=== PATIENT | female | born 1995 | race Caucasian/White ===

== ENCOUNTER → 2019-02-01 | Outpatient (CLI) | payer OTHER, SELFPAY ==
[2019-02-01 08:19] VITALS: BMI 23.6
[2019-02-01 18:59] LABS: Chlamydia Trachomatis by PCR Negative (Negative); Neisserai gonorrhoeae by PCR Negative (Negative); Probe Check PASS; Sample Adequacy Control PASS; Specimen Processing Control PASS
[2019-02-07 15:54] LABS: HPV Reflexed? NOT INDICATED
== END | disposition home or self-care (01) ==
LOC: LABSPEC 12:56
PROVIDERS: Nurse Practitioner Women's Health; Family Provider Pediatrics; PCP Pediatrics; Referring Provider Obstetrics & Gynecology; Visit Provider Obstetrics & Gynecology
DX: N89.8 Other specified noninflammatory disorders of vagina (principal); Z11.3 Encounter for screening for infections with a predominantly sexual mode of transmission; Z12.4 Encounter for screening for malignant neoplasm of cervix
CPT/HCPCS: 87070; 87205; 87491; 87591; 87624; 88175; G0145

== ENCOUNTER → 2019-02-03 | Outpatient (CLI) | payer OTHER, SELFPAY ==
[2019-02-03 08:36] VITALS: BMI 23.4
[2019-02-03 12:25] LABS: Hematocrit 41.1 % (37-47); Hemoglobin 13.7 g/dL (12.0-15.0); Mean Corp Hgb Conc 33.3 g/dL (32-36); Mean Platelet Vol. 10.5 fl (6.2-12.0); Platelet Count 228 K/mm3 (150-450); RBC Distribution Width CV 11.6 % (11.6-14.6); RBC Distribution Width SD 39.6 fl (35.1-43.9); Red Blood Count 4.42 M/mm3 (4.2-5.4); White Blood Count 3.8 K/mm3 (4.4-11.0)
[2019-02-03 12:47] LABS: AST(SGOT) 19 U/L (15-37); Alanine Aminotransfer ALT/SGPT 21 U/L (13-56); Albumin, Serum 3.5 g/dL (3.2-5.0); Alkaline Phosphatase 64 U/L (45-117); Anion Gap 3 (5-15); BUN 12 mg/dL (7-18); BUN/Creat Ratio 14.3 RATIO (10-20); Calcium,Total 8.6 mg/dL (8.5-10.1); Chloride 108 mmol/L (98-107); Creatinine, Serum 0.84 mg/dL (0.55-1.02); EST Glomerular Filtration Rate 90 mL/min (>60); Est Glom Filt Rate - Afr Amer 108 mL/min (>60); Globulin 3.4 g/dL (2.2-4.2); Glucose 86 mg/dL (74-106); Potassium 4.3 mmol/L (3.5-5.1); Protein, Total 6.9 g/dL (6.4-8.2); Sodium Level 138 mmol/L (136-145); Thyroid Stim Hormone (TSH) 0.83 uIU/mL (0.358-3.74)
== END | disposition home or self-care (01) ==
LOC: BIMLAB 09:00
PROVIDERS: Family Provider Pediatrics; PCP Internal Medicine; Visit Provider Nurse Practitioner Family
DX: R42 Dizziness and giddiness (principal)
CPT/HCPCS: 36415; 80053; 84443; 85027

== ENCOUNTER → 2019-06-07 12:27 | Outpatient (CLI) | payer OTHER, SELFPAY ==
[2019-04-07 14:14] VITALS: BMI 23.6
[2019-06-01 09:24] VITALS: BMI 23.6
--- NOTE | 2019-06-07 12:46 | MRI_ITS ---
STUDY: MRI BRAIN WITH AND WITHOUT CONTRAST REASON FOR EXAM: Female, 23 years old. Migraine headache, dizziness TECHNIQUE: Standardized multiplanar fat and water weighted pulse sequences were obtained. Dotarem 10ml IV was administered for the contrast portion of the examination. COMPARISON: None. FINDINGS: Normal size of the ventricles and extra-axial spaces for the patient''s age. Scattered punctate hyperintensities in the periventricular and subcortical white matter. Differential diagnosis includes hypercoagulable state including antiphospholipid antibody syndrome, vasculitis, migraine headaches, demyelinating disease (multiple sclerosis) stenosis, or Lyme disease. No contrast enhancement. There is no evidence for recent intracranial ischemia or other cause of cytotoxic edema on diffusion weighted imaging (DWI). Normal bilateral basal ganglia. Normal thalami. There is no extra-axial fluid accumulation. Normal flow voids within the major intracranial circulation suggesting patency by spin echo criteria. Normal venous enhancement. There is no enhancing intra-axial or extra-axial abnormality. Normal sella turcica, pituitary gland, infundibular stalk, optic chiasm and hypothalamus. Normal tectal plate and pineal gland. Normal midbrain, alfonso and medulla. Normal cerebellum. Normal basal cisterns. Normal bilateral temporal bones. Normal bilateral internal auditory canals. No demonstrated orbital abnormality, within the constraints of a routine brain study. Normal visualized paranasal sinuses. Normal calvarium and skull base. Normal visualized soft tissue structures. Normal visualized upper cervical spine. MRI/Brain W/WO Contrast IMPRESSION: Scattered punctate of the periventricular and subcortical white matter of of the frontal lobes and posterior parietal lobes. Differential diagnosis includes hypercoagulable state including antiphospholipid antibody syndrome, vasculitis, migraine headaches, demyelinating disease (multiple sclerosis) versus, or Lyme disease. No acute infarct or contrast enhancement. Electronically Signed: Sixto Moreau MD at 16:35 EST Tel , Service support ,
[2019-06-07 13:41] LABS: CREATININE FINGERSTICK 0.8 mg/dL (0.55-1.02); EGFR FINGERSTICK > 60.0000 mL/min (>60)
== END ==
PROVIDERS: Family Provider Internal Medicine; PCP Internal Medicine; Referring Provider Otolaryngology; Visit Provider Otolaryngology
DX: G43.009 Migraine without aura, not intractable, without status migrainosus (principal)
CPT/HCPCS: 70553; A9575

== ENCOUNTER → 2019-08-24 07:34 | Outpatient (CLI) | payer OTHER, SELFPAY ==
[2019-06-01 09:24] VITALS: BMI 23.6
--- NOTE | 2019-08-24 07:42 | MRI_ITS ---
STUDY: MRA OF THE HEAD WITHOUT CONTRAST REASON FOR EXAM: Female, 23 years old. h/a; exclude vasculitis, f/u mri COMPARISON: Previous MRI of the brain obtained on 06/07/2019 TECHNIQUE: An MRI of the head was performed utilizing 3-D [id number] spoiled gradient echo images. The source images were reviewed along with MIPPED images rotated about a vertical and horizontal axis through the anterior and posterior cerebral circulations. FINDINGS: Posterior cerebral circulation: The V4 segments of the vertebral arteries are normal. The basilar artery is normal. The anterior inferior cerebellar artery is seen and appears to be normal. The anterior superior cerebellar arteries are seen at their origins bilaterally. The P1 and P2 segments of posterior cerebral arteries are visualized and appear to be normal. Anterior cerebral circulation: The petrous, cavernous, and supraclinoid portions of the internal carotid arteries appear to be normal. The A1 segments of the anterior cerebral arteries and the pericallosal arteries appear to be normal. The anterior communicating artery is normal. The M1 segments of the middle cerebral arteries appear to be normal. The bifurcations of the middle cerebral arteries appear to be normal. No abnormal areas of spasm or peripheral dilatation of peripheral arteries is seen. No corbett aneurysms are identified. MRI/MRA Head ONLY without Contrast IMPRESSION: Normal MRA of the head Electronically Signed: Gurmeet More, at 11:25 EST Tel , Service support ,
== END ==
PROVIDERS: PCP Internal Medicine
DX: I77.6 Arteritis, unspecified (principal)
CPT/HCPCS: 70544

== ENCOUNTER → 2019-12-28 14:16 | Outpatient (CLI) | payer OTHER, SELFPAY ==
[2019-12-28 13:47] VITALS: BMI 22.1
[2019-12-28 15:13] LABS: Absolute Lymphocyte Count 2.02 X10^3/uL (0.83-4.51); Absolute Neutrophil Count 3.1 X10^3/uL (2.0-7.7); Basophil# 0.04 X10^3/uL; Basophil% 0.7 % (0-1); Eosinophil# 0.04 X10^3/uL; Eosinophils% 0.7 % (0-5); Hematocrit 38.7 % (37-47); Hemoglobin 13.2 g/dL (12.0-15.0); Lymphocyte # 2.02 X10^3/ul (4.0); Lymphocyte % 37.1 % (19-41); Mean Corp Hgb Conc 34.1 g/dL (32-36); Mean Corpuscular Volume 93.7 fL (81-99); Mean Platelet Vol. 10.1 fl (6.2-12.0); Monocyte# 0.29 X10^3/uL; Monocyte% 5.3 % (0-10); NRBC Flagged by Analyzer 0 % (0-5); Neutrophil # 3.05 X10^3/uL (2.7-7.7); Neutrophil % 56.2 % (47-70); Platelet Count 242 K/mm3 (150-450); RBC Distribution Width CV 11.9 % (11.6-14.6); RBC Distribution Width SD 40.8 fl (35.1-43.9); Red Blood Count 4.13 M/mm3 (4.2-5.4); White Blood Count 5.4 K/mm3 (4.4-11.0)
[2019-12-28 16:51] LABS: Anion Gap 7 (5-15); BUN 19 mg/dL (7-18); BUN/Creat Ratio 24.1 RATIO (10-20); Calcium,Total 8.7 mg/dL (8.5-10.1); Chloride 105 mmol/L (98-107); Creatinine, Serum 0.79 mg/dL (0.55-1.02); EST Glomerular Filtration Rate 96 mL/min (>60); Est Glom Filt Rate - Afr Amer 116 mL/min (>60); Glucose 72 mg/dL (74-106); Potassium 3.9 mmol/L (3.5-5.1); Sodium Level 140 mmol/L (136-145); Thyroid Stim Hormone (TSH) 1.08 uIU/mL (0.358-3.74)
== END ==
PROVIDERS: PCP Internal Medicine; Referring Provider Internal Medicine; Visit Provider Internal Medicine
DX: F41.1 Generalized anxiety disorder (principal)
CPT/HCPCS: 36415; 80048; 84443; 85025

== ENCOUNTER → 2020-01-03 09:09 | Outpatient (CLI) | payer OTHER, SELFPAY ==
[2020-01-02 16:51] VITALS: BMI 22.1
[2020-01-03 09:16] LABS: Bacteria 0 SEEN /hpf (None Seen); Mucous, Urine 0 SEEN /hpf (<or=2+); Red Blood Cells-Urine 0 SEEN /hpf (0-5); White Blood Cells 0 SEEN /hpf (0-5)
[2020-01-03 09:41] LABS: Color, Urine Yellow (Yellow); Glucose, Dipstick Normal (Normal); Ketone-Dipstick Negative (Negative); Leukocyte Esterase-Dipstick Negative /ul (Negative); Nitrite-Dipstick Negative (Negative); Occult Blood-Urine Negative /ul (Negative); Protein-Dipstick Negative (Negative); Urine Bilirubin Dipstick Negative (Negative); Urine Clarity Sl. Cloudy (Clear); Urine Urobilinogen Normal (Normal)
[2020-01-03 09:53] LABS: Squamous Epithelial Cells - UA 5-10 SEEN /hpf (5-10)
== END ==
PROVIDERS: Family Medicine; PCP Internal Medicine; Referring Provider Internal Medicine; Visit Provider Internal Medicine
DX: Z20.828 Contact with and (suspected) exposure to other viral communicable diseases (principal); M54.9 Dorsalgia, unspecified; R30.0 Dysuria
CPT/HCPCS: 81001; 87635; G2023; U0003

== ENCOUNTER → 2020-01-18 08:38 | Outpatient (CLI) | payer OTHER, SELFPAY ==
[2020-01-02 16:51] VITALS: BMI 22.1
[2020-01-18 10:05] LABS: CRP < 2.90 mg/L (0.0-3.0)
[2020-01-23 19:50] LABS: Calprotectin, Stool 50 ug/g (0-120)
== END ==
PROVIDERS: PCP Internal Medicine; Referring Provider Internal Medicine Gastroenterology; Visit Provider Internal Medicine Gastroenterology
DX: R19.4 Change in bowel habit (principal); R10.84 Generalized abdominal pain
CPT/HCPCS: 36415; 83993; 86140

== ENCOUNTER → 2020-01-22 16:10 | Outpatient (CLI) | payer OTHER, SELFPAY ==
[2020-01-22 15:12] VITALS: BMI 22.1
[2020-01-22 17:49] LABS: AST(SGOT) 18 U/L (15-37); Alanine Aminotransfer ALT/SGPT 23 U/L (13-56); Albumin, Serum 3.9 g/dL (3.2-5.0); Alkaline Phosphatase 63 U/L (45-117); Amylase 83 U/L (25-115); Bilirubin, Direct 0.15 mg/dL (0.00-0.30); Globulin 3.4 g/dL (2.2-4.2); Lipase 219 U/L (73-393); Protein, Total 7.3 g/dL (6.4-8.2)
== END ==
PROVIDERS: PCP Internal Medicine; Referring Provider Surgery; Visit Provider Surgery
DX: R10.9 Unspecified abdominal pain (principal)
CPT/HCPCS: 36415; 80076; 82150; 83690

== ENCOUNTER 2020-01-30 13:54 | Day surgery (SDC) | payer OTHER, SELFPAY ==
[2020-01-22 15:12] VITALS: BMI 22.1
[2020-01-30] VITALS (11 sets, daily range): BP systolic 93–118; BP diastolic 51–75; PULSE 55–64; RESP 14–16; TEMP 36.3–37.5; O2SAT 95–100; BMI 22.3
--- NOTE | 2020-01-30 | GALL_PTH ---
PATIENT: HATTIE FORD LOC: [facility] [place] U#:[id number] AGE/SX: 24/ ROOM: RE01/30/[address]: Dr. Je Guillen MD : 1995 BED: DIS: 01/30/2020 SPEC #: [id number] RECD: 01/31/20 07:31 STATUS: SCOUT MARY #: [id number] CRISTIAN: 01/30/20 00:[address]: Je Guillen DEPT: SURGICAL PATHOLOGY RECD BY: Wolf Hwang ENTERED: 01/31/20 09:06 SP TYPE: KIM SANCHEZ DR: Dr. Andriena Hernandez MD Tissues: Gallbladder, NOS Procedures: Surgery Specimen Level III HEADER OPERATION: Laparoscopic cholecystectomy with IOC PRE-OP DIAGNOSIS: Biliary dyskinesia TISSUE SUBMITTED: Gallbladder MICROSCOPIC DIAGNOSIS Gallbladder, cholecystectomy: Mild chronic cholecystitis. A pericystic lymph node with reactive changes. No stones are identified in the container or in the gallbladder. SJ:jennifer 02/01/20 MICROSCOPIC DESCRIPTION Slides are reviewed. GROSS DESCRIPTION Received is one container labeled with the patient's name and designated gallbladder. The specimen consists of a gallbladder measuring 7.5 x 2.5 x 2.5 cm. The external surface is smooth and glistening. Focally, it is granular, hemorrhagic and contains cautery artifact. The lumen of the gallbladder contains yellow-green mucoid bile. No stones are identified in the container or in the gallbladder. The mucosa is bile-stained and without any mass lesions. The gallbladder wall averages 0.1 cm in thickness and is free of mass lesions. Social Worker Assistant sections of the gallbladder and the cystic duct at margin of resection are submitted in one cassette. / AM:jennifer 01/31/20 TC:3 CPT: 29885
--- NOTE | 2020-01-30 14:11 | HP.PCM_ITS ---
Problem List (1) Biliary dyskinesia Status: Acute (2) Abdominal pain Status: Acute Qualifiers: Abdominal location: epigastric Qualified Code(s): R10.13 - Epigastric pain History and Physical Date of Admission: 01/30/20 Intake Visit Reasons: abd pain, change in bowels Chief Complaint: abdominal pain/change in bowel patterns Psychiatric Lpn Required: No Accompanied by: Mother Is patient in pain?: Yes Allergies pumpkin Allergy (Intermediate, Verified 01/22/20 15:11) Swelling Medications levonorgestrel 14 mcg/24 hrs (3 yrs) 13.5 mg intrauterine device 1 device INTRAUTERINE ONCE 06/01/19 [History Confirmed 01/22/20] buspirone 5 mg tablet 7.5 mg PO BID #180 tab 12/28/19 [Rx Confirmed 01/22/20] PFSH Medical History Generalized anxiety disorder (Chronic) URI, acute (Acute) Abdominal pain (Acute) Constipation (Acute) Diarrhea (Acute) Nausea & vomiting (Acute) Migraines (Acute) Surgical History No history of previous surgery (Acute) Family History (Updated 01/22/20 @ 15:10 by Cinthia Royal) Mother Heart disease Hypotension Lupus Father Skin cancer Aunt Migraine Social History (Updated 01/22/20 @ 16:[address] Je Guillen MD) Smoking Status: Never smoker alcohol intake: current alcohol intake frequency: a few times a month details: social substance use type: does not use caffeine: No what type of physical activity do you participate in: other details: Cross Fit frequency: 1-2 times per week seatbelt use: always do you feel safe at home: Yes additional social history: Single- [employer] HPI HPI HPI: HATTIE CHÁVEZ, is a 24 F who presents to the office today for surgical consultation regarding abdominal pain. Primary care physician is Dr. Hernandez and a written copy of my surgical consult recommendations will be returned to her 24-year-old female. I helped interact with her July 2016. That time she had diffuse abdominal pain bloating right lower quadrant pain. A CT scan was obtained at the [facility] showing a small umbilical hernia and gallbladder wall thickening and fluid. Additional possible small bowel ileus. A gallbladder ultrasound was obtained showing a 3 mm diameter wall with some slight fluid. That testing was performed July 31, 2016. On September 14, 2016 a hepatobiliary scan was obtained showing ejection fraction of 77%. We elected not to proceed with surgical intervention. For 3 years the patient has had severely restricted gluten in her diet with 1 year being completely gluten-free. More recently she has stopped dairy in her diet. She felt that it was causing progressive constipation. She now has problems with constipation alternating with diarrhea and this can be throughout a daily process. 3 weeks ago for 1 day she had a temperature of 99.9. COVID testing was performed and by report was negative. For approximately the past 4 months she has had a right flank pain that is radiated down toward the right lower quadrant. More recently over the past the past 3 weeks she has had a sharp pain in her back radiating around subcostally. She complains significantly of bloating and gas pain. She had a recent CRP level done on January 18, 2020 which was less than 2.9. As of January 03, 2020 urinalysis was obtained and this was normal. At that time December 28, 2019 white blood cell count was 5.4 with a hemoglobin of 13.2 and hematocrit 38.7 and platelet count of 242,000. BUN was 19 and creatinine 0.79. TSH was 1.08. Liver function tests were not obtained. She has been seen by gastroenterology in [facility] Dr. Bacon. Stool analysis is pending. The patient is scheduled for a colonoscopy in 3 days on January 25, 2020. It is of additional note that her mother because of abdominal pain is required at previous cholecystectomy and more recently within the past month a younger sister because of postprandial epigastric pain is undergone a laparoscopic cholecystectomy with relief of symptoms on both accounts. HPI HPI HPI: HATTIE CHÁVEZ, is a 24 F who presents to the office today for ROS General General: No weight change, appetite, fatigue, colon cancer, breast cancer or weakness HEENT HEENT: No difficulty swallowing, eye injury, eye surgery, swollen glands or hoarseness Endo Endocrine: No thyroid disease, diabetes mellitus, thyroid cancer, Hair loss, heat intolerance or cold intolerance Skin Skin: No rash or changing moles Breast Breast: No left breast lump, right breast lump, nipple discharge, breast pain, abnormal mammogram, abnormal US or breast enlargement Musc Musculoskeletal: No back problems, arthritis, rheumatoid arthritis, gout or joint pain Cardio Cardiovascular: No murmur, pacemaker, heart disease, atrial fibrillation, high blood pressure, heart attack, heart stent, palpitations, shortness of breat with exertion or chest pain Psych Psychiatric: Yes anxiety; no depression or hearing voices Resp Respiratory: No shortness of breath, No sleep apnea, No cough, No COPD, No asthma, No emphysema, No wheezing Gastro Gastrointestinal: Yes abdominal pain, Yes nausea or vomiting, Yes diarrhea, Yes constipation, No blood in stool, No acid reflux, No hemorrhoids, No ulcers, No gallbladder problem, No black,tarry stools Boni Hematologic: No blood thinners, No blood disorders, No bleeding, No anemia, No blood clots Neuro Neurologic: No system reviewed and no additional complaints, except as docu, No as per HPI, No abnormal walking, No abnormal hearing, No abnormal movements, No abnormal speech, No behavioral changes, No burning sensations, No confusion, No seizure-like activity, No unsteadiness, No dizziness, No localized weakness, No frequent falls, No headache(s), No lack of coordination, No loss of vision, No memory loss, No numbness, No other visual disturbances, No radiating pain, No restless legs, No sensory deficit, No fainting, No tingling, No tremor(s), No weakness, No other Exam Const General: cooperative, healthy appearing, comfortable, no acute distress Nutritional Appearance: average body habitus Orientation: alert, awake [facility] Head: normal to inspection Mouth: oral mucosae normal Eyes General: appearance normal, both eyes and all related structures Chest Breast Palpation: No nipple discharge Resp Effort & Inspection: normal respiratory effort Auscultation: clear to auscultation bilaterally Cardio Rate: regular rate Rhythm: regular rhythm Heart Sounds: no murmurs GI Palpation: soft, no hepatosplenomegaly Auscultation: normal bowel sounds Other: Mild tenderness palpation right upper quadrant, no mass, no rebound, Skin General: no rashes or lesions noted Neuro Cognition: normal cognition Extrem General: no calf tenderness Psych Affect: normal affect Assessment & Plan Problems 1. Biliary dyskinesia K82.8 Plan Clinical presentation findings are highly suspicious for biliary dyskinesia. She previously had borderline abnormal gallbladder evaluation with gallbladder wall thickening and pericholecystic fluid. She is tender in the right upper quadrant of the abdomen. I would like to obtain liver function tests amylase lipase. The squeezing chest pressure from behind radiating from her back forward as if someone is squeezing her from behind is of note. She does do CrossFit and on a separate note there may have some been some musculoskeletal strain but she clearly disassociates this from her more severe pain that she gets postprandially. I recommend LFTs amylase lipase. She is to have a colonoscopy in 3 days. I will coordinate with her tire classifier possible treatment. At this point I am leaning toward recommending a laparoscopic cholecystectomy with selective cholangiography. The patient presents with her mother today. She is aware of the technique, benefit, risk and alternatives. No guarantees of success have been offered. We will schedule and proceed at her discretion CC: Dr. David Guillen M.D., F.A.C.S. Orders Orders: Amylase Today R10.9 Lipase Today R10.9 Liver Profile Today R10.9 Coding Level of Care Code Off vis,est,level 3 Diagnoses Biliary dyskinesia K82.8 After discussion with radiology the patient did have a colonoscopy. Biopsy results were pending at the time of my dictation. The patient awoke this morning with severe epigastric pain. I had had a discussion with the tire classifier his initial impression was probable irritable bowel syndrome however of course he could not exclude potential benefit from cholecystectomy. I have had an extensive discussion with the patient regarding technique, benefit, risk, alternatives. The patient and mother are aware that cholecystectomy may not resolve her concerns but based upon the family history we will help that it improves her situation. If she continues to have residual symptoms that I would anticipate ongoing gastroenterology and primary care assistance subsequently. She presents urgently today to proceed with cholecystectomy Je Guillen M.D., F.A.C.S. Procedure Criteria COVID Risk Discussion: Urgent procedure. The [facility] is reporting a low local incidence of COVID-19 Je Guillen M.D., F.A.C.S.
[2020-01-30 14:28] LABS: Internal QC Validated? YES +Cl - CLEAR BKGD; Pregnancy, Urine Negative Negative
[2020-01-30] MEDS: Lactated Ringers 1,000 ML 100 ML IV (14:31)
--- NOTE | 2020-01-30 14:49 | EKG12_ITS ---
Test Reason : PREOP Blood Pressure : / mmHG Vent. Rate : 054 BPM Atrial Rate : 054 BPM P-R Int : 132 ms QRS Dur : 080 ms QT Int : 458 ms P-R-T Axes : 001 024 046 degrees QTc Int : 434 ms Sinus bradycardia with sinus arrhythmia Otherwise normal ECG No previous ECGs available Confirmed by HARESH DE LA GARZA, IRAJ ([id number]), supervising editor news reel VEDA GARCIA ([id number]) on 02/01/2020 3:59:59 PM Referred By: Je Guillen Confirmed By:IRAJ HUTSON MD
--- NOTE | 2020-01-30 15:42 | DCINST_ITS ---
Discharge Diet: Light diet - advance as tolerated - if you have questions about your diet instructions, please talk to you doctor. Discharge Activity: May Not Drive - for 3-5 days or while taking narcotic pain medicine. May shower in (days): 1 Lifting Restrictions: 10 pounds Call your doctor if your incision/area has: Continuous Slow Oozing, Sudden Increased Bleeding, Increased Pain/ Swelling, Increased Redness, Foul Smelling Discharge Call your doctor if you observe: Fever of 101 or Higher Suture Line Care: Avoid Pulling/Pushing, Avoid Pinching/Bending Additional Dressing/Incision Instructions:: Change or remove dressing in 4 days. Leave steri-strips in place for 1 week. Allergies/Adverse Reactions: Allergies pumpkin Allergy (Intermediate, Verified 01/22/20 15:11) Swelling Medications to take at Discharge levonorgestrel 14 mcg/24 hrs (3 yrs) 13.5 mg intrauterine device 1 device INTRAUTERINE ONCE 06/01/19 buspirone 5 mg tablet 7.5 mg PO BID #180 tab 12/28/19 Hydrocodone Bitart/Apap 5-325 [[place] 5MG-325MG] 1 tab PO Q6H PRN PRN 3 Days #10 tab 01/30/20 The following prescriptions were given: Hydrocodone Bitart/Apap 5-325 [[place] 5MG-325MG] 1 tab PO Q6H PRN PRN 3 Days #10 tab PRN Reason: Pain Transmission Status: Sent to [facility] Primary Care Physician: Andreina Hernandez MD [Primary Care Provider] - Test Results: Test results from this visit will be discussed in further detail at your follow- up appointment, if applicable. Please Follow Up With: Je Guillen MD - [phone] When: Call to make an appointment to be seen in about 10 days.
[2020-01-30] MEDS: Cefazolin 2 GM in 0.9% Normal Saline 100 ML IV (15:49)
--- NOTE | 2020-01-30 15:55 | RAD_ITS ---
CLINICAL HISTORY: PAIN, BILIARY DYSKINESIA COMPARISON: None. TECHNIQUE: 95 image(s) of cholangiogram performed by Physician: Je Guillen were submitted for evaluation. FINDINGS: There is cannulation of the cystic duct with introduction of contrast material which fills the cystic duct and common bile duct. A focal filling defect is seen at the distal CBD. Contrast is seen passing into the duodenum. The remainder the visualized soft tissues and osseous structures are unremarkable. RAD/Cholangiogram/ O R,Initial IMPRESSION: Cholangiogram with filling defect at the distal CBD. Please see associated procedure report for further details. Electronically Signed: Wayne Seth, at 20:43 EDT Tel , Service support ,
--- NOTE | 2020-01-30 16:30 | PCM.OPRPT ---
Problem List (1) Biliary dyskinesia Status: Acute (2) Abdominal pain Status: Acute Qualifiers: Abdominal location: epigastric Qualified Code(s): R10.13 - Epigastric pain Report of Operation Date of Procedure: 01/30/20 Pre-Operative Diagnosis: Biliary dyskinesia Post-Operative Diagnosis: Same Surgery/Procedure Performed:: Laparoscopic cholecystectomy with cholangiograms Description of Surgical Findings:: Timeout and informed consent was obtained. The patient was taken to the operating room placed supine on the table. She underwent general endotracheal intubation esthesia. Ancef 2 g were given intravenously. The abdomen sterilely prepped and draped. 0.5% Marcaine was used as local anesthetic. Total 30 cc was used. Skin sites were pre-anesthetized. A vertical infraumbilical incision was created. Holding sutures of 0 Vicryl placed. Varies needle inserted. Saline drop test performed. The abdomen was insufflated with CO2 to a pressure of 10 mmHg pressure. 10 mm trocar inserted. 10 mm laparoscope inserted. Under direct visitation 5 mm ports were placed in the epigastric right upper quadrant and right lateral upper quadrant area. The abdomen was inspected. Superficial structures appear to be unremarkable. The gallbladder was slightly tense. There were adhesions to the small bowel duodenum. These were sharply transected. Then the infundibular area of the gallbladder was completely dissected free until clearly the hepatocystic angle and clear view was achieved. The cystic artery was clipped proximally and distally with hemo-lock clips prior to transecting. A hemo-lock clip placed on the cystic duct stump and incision made in the cystic duct and through a 14-gauge Angiocath a cholangiogram catheter was inserted. Fluoroscopically control cholangiograms were obtained demonstrating normal ductal anatomy and free flow into the small bowel. The cholangiogram catheter was removed. 2 hemo-lock clips were placed on the cystic duct stump prior to transecting it. The gallbladder was dissected from the liver bed using electrocautery. Additional posterior cystic artery vessel was secured with a hemo-lock clip. The gallbladder is dissected free. Hemostasis was very nicely intact. The right upper quadrant was irrigated aspirated free of excess fluid. The gallbladder was placed in a retrieval bag. The abdomen was allowed to deflate of the CO2 through an antiviral valve. Trochars removed. The gallbladder was easily exited at the umbilicus. The fascia at the umbilicus approximated with a taohcg-lf-khmoh suture of 0 Ethibond. Skin edges approximated opted for Monocryl subdermal stitches. Steri-Strips Telfa OpSite dressings applied. Sponge and instrument and needle counts were reported to the surgeon to be correct. Blood loss was minimal. Specimen gallbladder. Drains none. Blood loss minimal. The patient was taken to the recovery area in satisfactory addition without apparent complication Je Guillen M.D., F.A.C.S. Type of Anesthesia:: General Anesthesiologist: Tani Hurst
[2020-01-30] MEDS: Bupivacaine Mpf 0.5% 30 ML VIAL (16:35)
[2020-01-30] MEDS: HYDROcodone Bitartrate/Apap 5/325 Tablet PO (19:00)
== END 2020-01-30 20:08 | disposition home or self-care (01) ==
LOC: SDC 13:56 → AC 13:57
PROVIDERS: PCP Internal Medicine; Referring Provider Surgery; Visit Provider Surgery
PROC: (CPT 47610; principal; 2020-01-30 15:10)
DX: K81.1 Chronic cholecystitis (principal); K59.00 Constipation, unspecified; R19.7 Diarrhea, unspecified; F41.1 Generalized anxiety disorder; Z79.3 Long term (current) use of hormonal contraceptives; Z79.899 Other long term (current) drug therapy
CPT/HCPCS: 00790; 47563; 74300; 76000; 81025; 88304; 93005; J7120; J2405

== ENCOUNTER → 2020-03-07 15:35 | Outpatient (CLI) | payer OTHER, SELFPAY ==
[2020-01-30 14:33] VITALS: BMI 22.3
--- NOTE | 2020-03-07 15:37 | CT_ITS ---
HISTORY: DIFFUSE ABD PAIN, NAUSEA, ABD CRAMPING, S/O RAJEEV 5 WKS AGO, HAS IUD ADDITIONAL HISTORY: None provided. EXAMINATION/TECHNIQUE: CT Abdomen And Pelvis W/ Contrast Injection CONTRAST: 100mL Isovue-300 IV contrast. Enteric contrast Redicat was given. A radiation dose optimization technique was used for this scan. Number of images including paperwork: [id number] COMPARISON: 07/30/2016 FINDINGS: LOWER THORAX: No consolidation or pleural effusion. LIVER: No concerning focal lesion. GALLBLADDER: Cholecystectomy. BILE DUCTS: No significant biliary dilatation. SPLEEN: Unremarkable. PANCREAS: Unremarkable. ADRENAL GLANDS: Unremarkable. KIDNEYS/URETERS: Unremarkable. BOWEL: Gastric distention is noted with air contrast level. Small amount of retained gastric contents in the dependent fundus.. No bowel obstruction. Contrast is present to the level of the distal small bowel at the time of scanning. No significant bowel wall thickening. No localized inflammation. APPENDIX: Normal. FREE FLUID: Trace free fluid. FREE AIR: None. LYMPH NODES: No pathologic appearing adenopathy. PERITONEUM, RETROPERITONEUM AND MESENTERY: Otherwise unremarkable. VASCULATURE: Unremarkable as imaged. PELVIS: Unremarkable bladder. IUD. ABDOMINAL WALL: Unremarkable. OSSEOUS AND SOFT TISSUE STRUCTURES: No acute skeletal findings. CT/Abdomen/Pelvis WITH Contrast IMPRESSION: Gastric distention. Individualized dose optimization techniques were used for this CT. at 0500 Reported and signed by: Nela Menjivar MD Electronically Signed: Nela Menjivar MD at 5:00 EDT Tel , Service support ,
== END ==
PROVIDERS: PCP Internal Medicine; Referring Provider Internal Medicine Gastroenterology; Visit Provider Internal Medicine Gastroenterology
DX: R10.9 Unspecified abdominal pain (principal)
CPT/HCPCS: 74177; Q9967

== ENCOUNTER → 2020-10-16 08:30 | Outpatient (CLI) | payer OTHER, SELFPAY ==
[2020-10-16 08:18] VITALS: BMI 24.0
[2020-10-16 12:12] LABS: Absolute Lymphocyte Count 1.08 X10^3/uL (0.83-4.51); Absolute Neutrophil Count 3.5 X10^3/uL (2.0-7.7); Basophil# 0.03 X10^3/uL; Basophil% 0.6 % (0-1); Eosinophil# 0.04 X10^3/uL; Eosinophils% 0.8 % (0-5); Hematocrit 40.7 % (37-47); Lymphocyte # 1.08 X10^3/ul (0.83-4.51); Lymphocyte % 21.8 % (19-41); Mean Corp Hgb Conc 31.9 g/dL (32-36); Mean Platelet Vol. 10.4 fl (6.2-12.0); Monocyte# 0.26 X10^3/uL; Monocyte% 5.3 % (0-10); NRBC Flagged by Analyzer 0 % (0-5); Neutrophil # 3.53 X10^3/uL (2.7-7.7); Neutrophil % 71.3 % (47-70); Platelet Count 221 K/mm3 (150-450); RBC Distribution Width CV 11.9 % (11.6-14.6); RBC Distribution Width SD 41.1 fl (35.1-43.9); Red Blood Count 4.33 M/mm3 (4.2-5.4)
[2020-10-16 12:30] LABS: ALB/GLOB Ratio 1.3 RATIO (0.9-2.4); AST(SGOT) 13 U/L (15-37); Alanine Aminotransfer ALT/SGPT 22 U/L (13-56); Albumin, Serum 3.8 g/dL (3.2-5.0); Alkaline Phosphatase 62 U/L (45-117); Anion Gap 3 (5-15); BUN 13 mg/dL (7-18); BUN/Creat Ratio 16.8 RATIO (10-20); Chloride 109 mmol/L (98-107); Creatinine, Serum 0.77 mg/dL (0.55-1.02); EST Glomerular Filtration Rate 98 mL/min (>60); Est Glom Filt Rate - Afr Amer 118 mL/min (>60); Globulin 2.9 g/dL (2.2-4.2); Glucose 69 mg/dL (74-106); Potassium 4.1 mmol/L (3.5-5.1); Protein, Total 6.7 g/dL (6.4-8.2); Sodium Level 140 mmol/L (136-145)
== END ==
PROVIDERS: PCP Internal Medicine; Referring Provider Internal Medicine; Visit Provider Internal Medicine
DX: F41.1 Generalized anxiety disorder (principal)
CPT/HCPCS: 36415; 80053; 85025

== ENCOUNTER → 2021-03-19 10:35 | Outpatient (CLI) | payer OTHER, SELFPAY ==
--- NOTE | 2021-03-19 10:37 | NM_ITS ---
CLINICAL: 25-year-old female with reported history of abdominal bloating, clinical gastroparesis. SEMI-SOLID PHASE 99m Tc SULFUR COLLOID GASTRIC EMPTYING STUDY COMPARISON: None available FINDINGS: The patient was administered 1.1 mCi of 99m Tc sulfur colloid mixed with oatmeal and consumed per os. Image acquisitions in the anterior-posterior projections for a total of 60 minutes. There is prompt visualization of the stomach. There is no gastroesophageal reflux identified. The T ? linear fit was calculated to be 55.6 minutes, (Normal: 12-56 minutes). NM/Gastric Emptying Study IMPRESSION: 1. UPPER LIMITS OF NORMAL 99m Tc sulfur colloid semi-solid phase (oatmeal) gastric emptying imaging examination. A. There is preserved semi-solid phase gastric emptying compared to normal controls. (Yinka et al, J Nucl Med Tech 38: 186, 2010). Electronically Signed: Sixto Church DO at 22:34 EDT Tel , Service support ,
== END ==
PROVIDERS: PCP Internal Medicine; Referring Provider Internal Medicine Gastroenterology; Visit Provider Internal Medicine Gastroenterology
DX: R10.9 Unspecified abdominal pain (principal)
CPT/HCPCS: 78264; A9541

== ENCOUNTER 2021-04-02 06:42 | Day surgery (SDC) | payer OTHER, SELFPAY ==
[2021-04-02] VITALS (7 sets, daily range): BP systolic 91–102; BP diastolic 43–49; PULSE 48–54; RESP 16–18; TEMP 36.2–36.5; O2SAT 100; BMI 23.0
--- NOTE | 2021-04-02 | EGD_PTH ---
PATIENT: HATTIE FORD LOC: EN U#:[id number] AGE/SX: 25/F ROOM: RE04/02/[address]: Dr. Ravin Valles DO : 1995 BED: DIS: 04/02/2021 SPEC #: [id number] RECD: 04/02/21 10:50 STATUS: SCOUT REFlorencio #: [id number] CRISTIAN: 04/02/21 00:[address]: Ravin Valles DEPT: SURGICAL PATHOLOGY RECD BY: Wolf Hwang ENTERED: 04/02/21 10:51 SP TYPE: EGD BIOPSY OT DR: Dr. Sandrine Stock DO Tissues: A - Duodenum, NOS B - Esophageal mucous membrane Procedures: Special Stain Group II Surgery Specimen Level IV Alcian Blue/PAS (control) HEADER OPERATION: EGD ([facility]) PRE-OP DIAGNOSIS: Delayed gastric emptying, abdominal pain, constipation TISSUE SUBMITTED: A ? Biopsy of duodenum, B ? Distal esophagus biopsy MICROSCOPIC DIAGNOSIS A. Duodenum, biopsy: Fragments of duodenal mucosa with mild Gumaro gland hyperplasia. B. Distal esophagus, biopsy: Fragments of gastroesophageal mucosa with moderate chronic inflammation and lymphoid aggregates, favor benign. Intestinal metaplasia (goblet cell metaplasia) not identified. See comment. ROLANDO:jennifer 04/03/2021 COMMENT B. Alcian blue/PAS stain with matched control is used in the evaluation of the specimen. MICROSCOPIC DESCRIPTION Slides are reviewed. GROSS DESCRIPTION A - Received in fixative is one container labeled with the patient's name and designated biopsy of duodenum. The specimen consists of multiple irregular fragments of light warner soft tissue that in aggregate measure 1 x 0.5 x 0.1 cm. The specimen is totally submitted in one cassette. B - Received in fixative is one container labeled with the patient's name and designated distal esophagus biopsy. The specimen consists of two irregular fragments of light warner soft tissue that in aggregate measure 0.5 x 0.5 x 0.1 cm. The specimen is totally submitted in one cassette. / ROLANDO:jennifer 04/02/21 TC:3 CPT: 20758 x2, 52130
[2021-04-02 07:08] LABS: Internal QC Validated? YES +Cl - CLEAR BKGD; Pregnancy, Urine Negative Negative
[2021-04-02] MEDS: Lactated Ringers 1,000 ML 100 ML IV (07:15)
--- NOTE | 2021-04-02 07:51 | HP.PCM_ITS ---
History and Physical Date of Admission: 04/02/21 HATTIE CHÁVEZ, is a 25 F who presents to the office today for evaluation of abdominal pain. She has a history of chronic idiopathic constipation. Her abdominal pain started about 3 to 4 years ago. She says during that time she had lost a significant amount of weight due to the inability to eat. When she would eat she would develop excruciating abdominal pain. She had gone gluten- free and cut out almost all carbohydrates. This made her constipation worse. She also struggles with an anxiety disorder requiring the ministration of buspirone. She was initially evaluated in 2017 for biliary dyskinesia as a cause of abdominal pain. She underwent biochemical analysis which did not reveal any abnormalities in her CBC, CMP, amylase lipase, CRP or ESR. She will underwent CT scan abdomen pelvis which showed a large dilated stomach with retained food contents, dilated small bowel without an obstruction and signs of constipation in the colon. She went to see a online facilitator and underwent colonoscopy with random biopsies. The colonoscopy report is not available to me; however as per patient there was no abnormality seen. Also the biopsies did not show any signs of microscopic colitis. After she underwent colonoscopy she was seen again by surgery. She underwent a HIDA scan which showed an ejection fraction of 77% and an ultrasound which showed a normal common bile duct diameter and some mild gallbladder wall thickening. There was a strong suspicion for biliary dyskinesia so she underwent elective cholecystectomy. She still had symptoms of abdominal pain afterwards that was similar to her abdominal pain prior to her undergoing cholecystectomy. She had a repeat CT scan abdomen pelvis which again showed a large dilated stomach with retained food contents, a dilated small bowel and constipation. She comes in today for the evaluation of her abdominal pain. She works out a lot and is in very good shape. She eats a very good diet and maintains a normal weight. Her BMI is currently 22.7. She has increased her buspirone which is worsening her const ipation. She has not had any other abdominal surgeries. She has a normal menstrual cycle. She does have a strong family history of cardiovascular disease. She did have an evaluation in the ED because she was having severe chest pain. In the evaluation she had a normal D-dimer and CT angio of the chest. It was thought to be secondary to anxiety. ROS Const Constitutional: No anorexia, fatigue, fever(s), weight change or sleep problems Eyes Eyes: No change in vision ENT ENT: No abnormal hearing, difficulty swallowing, mouth lesions, tongue swelling or throat swelling Resp Respiratory: No cough or shortness of breath Cardio Cardiology: No chest pain at rest, chest pain with exertion, shortness of breath or dyspnea on exertion Gastro GI: Positive for abdominal pain, bloating, change in bowel habits, constipation, diarrhea and heartburn; No difficulty swallowing Genitourinary-Female: No difficulty urinating or burning urination Musc Musculoskeletal: Positive for back pain Skin Skin: No hair loss in leg, yellowing of the eye, itchy eyes, rash, skin ulcer or skin swelling Neuro Neurology: No abnormal hearing, abnormal movements, confusion, unsteady gait/balance or memory loss Psych Psychiatric: Positive for anxiety, No confusion and No memory loss Endo Endocrine: No fatigue or weight change Aller/Imm Allergy/Immunologic: No itchy eyes, throat swelling or tongue swelling Boni/Lymp Hematologic/Lymphatic: No easy bleeding, easy bruising or enlarged lymph nodes Exam Const General: cooperative and comfortable Nutritional Appearance: average body habitus and well nourished [facility] Head: normal to inspection Ears: hearing grossly normal bilaterally Nose: external nose normal Face and sinus: normal facial exam Mouth: oral mucosae normal Throat: posterior oropharynx normal Eyes General: appearance normal, both eyes and all related structures Neck Neck: normal visual inspection Chest Chest palpation & inspection: normal inspection of the chest and normal palpation of entire chest wall Resp Effort & Inspection: normal respiratory effort Auscultation: Bilateral: Clear to Auscultation Cardio Palpation: normal PMI Rate: regular rate Rhythm: regular rhythm GI Inspection: normal to inspection Auscultation: normal bowel sounds Percussion: normal to percussion Palpation: no hepatosplenomegaly Skin General: no rashes or lesions noted Neuro General: patient alert Extrem General: normal to inspection Psych Affect: normal affect Quality Reporting Tobacco Screening ([facility] 138) Smoking Status: Never smoker Assessment and Plan (No Qualifiers) Assessment and Plan (1) Delayed gastric emptying: Status: Acute Plan - Dr. Ravin Valles DO: Differential diagnosis for her delayed gastric emptying would be medication induced gastroparesis, idiopathic gastroparesis and autoimmune gastroparesis. She will undergo gastric emptying study for evaluation of the upper GI tract and possibly upper GI with small bowel follow-through. (2) Abdominal pain: Status: Acute Plan - Dr. Ravin Friend, DO: Her abdominal pain could be secondary to her bowel syndrome. However she has 2 separate CAT scans 3 years apart that show a severely dilated stomach in the setting of dilated small bowel and constipation. (3) Constipation: Status: Acute Plan - Dr. Alicia Friend, DO: Her constipation is worse secondary to the increase in her buspirone. I will not make any recommendations regarding her constipation at this time as she is trying to wean herself off of that medicine. Plan Details Additional Comments: Further work-up will follow after she undergoes gastric emptying study. Thank you very much for allowing me to participate in the care of this patient. Goals & Barriers: Goals Improve ROM Decrease spasm Decrease pain Improve sleep Nothing has changed since she was seen in office this is an updated H&P.
--- NOTE | 2021-04-02 08:22 | OP.CCLET_ITS ---
02/26/2022 Andreina Hernandez MD [address] [place] [address] [place] [address] Re : Upper GI endoscopy procedure for Leeanna Villarreal Dear Dr. Hernandez This procedure was performed on Friday, April 02, 2021. My impressions and recommendations are as follows: Impressions : - LA Grade A reflux esophagitis. Biopsied. - Duodenitis. Biopsied. Recommendations : - Discharge patient to home. - Resume previous diet. - Continue present medications. - Await pathology results. - Repeat upper endoscopy in 2 weeks for surveillance based on pathology results. - Return to GI clinic today. My findings are described in the full procedure note, which is enclosed. If I can be of further assistance, please feel free to contact me at . Sincerely, Ravin Valles, 04/02/2021 8:21:44 AM This report has been signed electronically.
--- NOTE | 2021-04-02 08:22 | OP.EGD_ITS ---
Patient Name: Leeanna Villarreal Procedure Date: 04/02/2021 7:54 AM Date of : 1995 Age: 25 Procedure: Upper GI endoscopy Indications: Epigastric abdominal pain Providers: Ravin Valles DO Referring MD: Ravin Valles DO Medicines: Monitored Anesthesia Care Patient Profile: This is a 25 year old female. Refer to note in patient chart for documentation of history and physical. Patient has symptoms of acute epigastric abdominal pain. Complications: No immediate complications. Procedure: Pre-Anesthesia Assessment: - Prior to the procedure, a History and Physical was performed, and patient medications and allergies were reviewed. The patient is competent. The risks and benefits of the procedure and the sedation options and risks were discussed with the patient. All questions were answered and informed consent was obtained. Patient identification and proposed procedure were verified by the physician in the pre-procedure area. Mental Status Examination: alert and oriented. Airway Examination: normal oropharyngeal airway and neck mobility. Respiratory Examination: clear to auscultation. CV Examination: normal. Prophylactic Antibiotics: The patient does not require prophylactic antibiotics. Prior Anticoagulants: The patient has taken no previous anticoagulant or antiplatelet agents. ASA Grade Assessment: II - A patient with mild systemic disease. After reviewing the risks and benefits, the patient was deemed in satisfactory condition to undergo the procedure. The anesthesia plan was to use moderate sedation / analgesia (conscious sedation). Immediately prior to administration of medications, the patient was re-assessed for adequacy to receive sedatives. The heart rate, respiratory rate, oxygen saturations, blood pressure, adequacy of pulmonary ventilation, and response to care were monitored throughout the procedure. The physical status of the patient was re-assessed after the procedure. After obtaining informed consent, the endoscope was passed under direct vision. Throughout the procedure, the patient's blood pressure, pulse, and oxygen saturations were monitored continuously. The gastroscope was introduced through the mouth, and advanced to the second part of duodenum. The upper GI endoscopy was accomplished without difficulty. The patient tolerated the procedure well. Moderate Sedation: Moderate (conscious) sedation was administered by the endoscopy nurse and supervised by the endoscopist. The patient's oxygen saturation, heart rate, blood pressure and response to care were monitored. Scope In: 8:06:13 AM Scope Out: 8:11:11 AM Total Procedure Duration Time 0 hours 4 minutes 58 seconds Findings: LA Grade A (one or more mucosal breaks less than 5 mm, not extending between tops of 2 mucosal folds) esophagitis with no bleeding was found. Biopsies were taken with a cold forceps for histology. Verification of patient identification for the specimen was done. Estimated blood loss was minimal. The stomach did not seem to contract very well when CO2 was insufflated into the stomach. There also was mild pyloric stenosis. The exam of the stomach was otherwise normal. Patchy mild inflammation characterized by congestion (edema) was found in the second portion of the duodenum. Biopsies were taken with a cold forceps for histology. Verification of patient identification for the specimen was done. Estimated blood loss was minimal. Impression: - LA Grade A reflux esophagitis. Biopsied. - Duodenitis. Biopsied. Recommendation: - Discharge patient to home. - Resume previous diet. - Continue present medications. - Await pathology results. - Repeat upper endoscopy in 2 weeks for surveillance based on pathology results. - Return to GI clinic today. Procedure Code(s): --- Professional --- 92651, Esophagogastroduodenoscopy, flexible, transoral; with biopsy, single or multiple CPT copyright 2017 [employer]. All rights reserved. The codes documented in this report are preliminary and upon carpenters supervisor review may be revised to meet current compliance requirements. Ravin Valles DO 04/02/2021 8:21:44 AM This report has been signed electronically. Number of Addenda: 1 Note Initiated On: 04/02/2021 7:54 AM Addendum Number: 1 Addendum Date: 02/26/2022 4:19:46 PM MAC was used instead of moderate sedation for this patient. Ravin Valles DO 02/26/2022 4:19:50 PM This report has been signed electronically.
== END 2021-04-02 08:56 ==
LOC: EN 06:42 → AC 06:42
PROVIDERS: Anesthesiology; PCP Internal Medicine; Referring Provider Internal Medicine; Visit Provider Internal Medicine Gastroenterology
PROC: 0DJ08ZZ Inspection of Upper Intestinal Tract, Via Natural or Artificial Opening Endoscopic (ICD-10-PCS; CPT 43235; principal; 2021-04-02 07:40)
DX: K20.90 Esophagitis, unspecified without bleeding (principal); K29.80 Duodenitis without bleeding; K30 Functional dyspepsia; K59.00 Constipation, unspecified; Z20.822 Contact with and (suspected) exposure to COVID-19; Z79.899 Other long term (current) drug therapy; F41.9 Anxiety disorder, unspecified
CPT/HCPCS: 43239; 81025; 87426; 88305; 88313; C9803; J7120; J2405

== ENCOUNTER → 2021-05-01 06:14 | Outpatient (CLI) | payer OTHER, SELFPAY ==
[2021-05-04 11:07] LABS: Beef <0.10 kU/L (Class 0); Clam <0.10 kU/L (Class 0); Codfish <0.10 kU/L (Class 0); Corn <0.10 kU/L (Class 0); Egg, White <0.10 kU/L (Class 0); Egg, Whole <0.10 kU/L (Class 0); Milk (Cow) <0.10 kU/L (Class 0); Peanut <0.10 kU/L (Class 0); Pork <0.10 kU/L (Class 0); SCALLOP <0.10 kU/L (Class 0); SESAME SEED <0.10 kU/L (Class 0); Shrimp <0.10 kU/L (Class 0); Soybean <0.10 kU/L (Class 0); Walnut, (Food) <0.10 kU/L (Class 0); Wheat <0.10 kU/L (Class 0)
[2021-05-04 12:04] LABS: Chocolate <0.10 kU/L (Class 0)
== END ==
PROVIDERS: PCP Internal Medicine; Referring Provider Internal Medicine Gastroenterology; Visit Provider Internal Medicine Gastroenterology
DX: K30 Functional dyspepsia (principal)
CPT/HCPCS: 36415; 86003; 86005

== ENCOUNTER 2021-09-29 08:58 | Outpatient (CLI) | payer OTHER, SELFPAY | END 2021-09-29 23:59 | disposition home or self-care (01) | LOC: LABSPEC 09-30 08:59 | PROVIDERS: PCP Internal Medicine; Visit Provider Nurse Practitioner Women's Health | DX: N76.0 Acute vaginitis (principal) ==

== ENCOUNTER 2021-10-09 15:53 | Outpatient (CLI) | payer OTHER, SELFPAY ==
[2021-10-17 21:13] LABS: HPV Reflexed? NOT INDICATED
== END 2021-10-09 23:59 | disposition home or self-care (01) ==
LOC: LABSPEC 15:54
PROVIDERS: Nurse Practitioner Women's Health; PCP Internal Medicine; Visit Provider Nurse Practitioner Family
DX: Z12.4 Encounter for screening for malignant neoplasm of cervix (principal)
CPT/HCPCS: 88175; G0145

== ENCOUNTER → 2022-05-27 | Outpatient (CLI) | payer OTHER, SELFPAY ==
[2022-05-27 15:02] LABS: Amphetamine Urine VISTA NEGATIVE (<1000 ng/mL); Barbiturate Urine VISTA NEGATIVE (< 200 ng/mL); Benzodiazepine Urine VISTA NEGATIVE (< 200 ng/mL); Cocaine Urine VISTA NEGATIVE (< 300 ng/mL); Ecstacy Urine VISTA NEGATIVE (< 500 ng/mL); Methadone Urine VISTA NEGATIVE (< 300 ng/mL); PCP Urine VISTA NEGATIVE (< 25 ng/mL); THC Urine VISTA NEGATIVE (< 50 ng/mL); Vista UDS pH Range 6
[2022-05-29 22:06] LABS: Chlamydia By Nucleic Acid AMP Negative (Negative)
[2022-05-29 22:50] LABS: Gonococcus By Nucleic Acid AMP Negative (Negative)
== END | disposition home or self-care (01) ==
PROVIDERS: PCP Internal Medicine; Visit Provider Obstetrics & Gynecology
DX: Z34.90 Encounter for supervision of normal pregnancy, unspecified, unspecified trimester (principal)
CPT/HCPCS: 80307; 87077; 87086; 87088; 87186; 87491; 87591

== ENCOUNTER → 2022-06-04 | Outpatient (CLI) | payer OTHER, SELFPAY ==
[2022-06-04 13:45] LABS: Absolute Lymphocyte Count 1.73 X10^3/uL (0.83-4.51); Basophil# 0.01 X10^3/uL; Basophil% 0.1 % (0-1); Eosinophil# 0.04 X10^3/uL; Eosinophils% 0.6 % (0-5); Hemoglobin 12.5 g/dL (12.0-15.0); Lymphocyte # 1.73 X10^3/ul (0.83-4.51); Lymphocyte % 24.2 % (19-41); Mean Corp Hgb Conc 34.7 g/dL (32-36); Mean Corpuscular Hgb 31.7 pg (27.0-32.0); Mean Corpuscular Volume 91.4 fL (81-99); Monocyte# 0.39 X10^3/uL; Monocyte% 5.4 % (0-10); NRBC Flagged by Analyzer 0 % (0-5); Neutrophil # 4.97 X10^3/uL (2.7-7.7); Neutrophil % 69.4 % (47-70); Platelet Count 232 K/mm3 (150-450); RBC Distribution Width CV 11.5 % (11.6-14.6); RBC Distribution Width SD 38.5 fl (35.1-43.9); Red Blood Count 3.94 M/mm3 (4.2-5.4); White Blood Count 7.2 K/mm3 (4.4-11.0)
[2022-06-04 14:17] LABS: NATERA MAILED SPECIMEN
[2022-06-04 15:38] LABS: HIV - WCH Non-Reactive (Nonreactive); Hepatitis B Surface Antigen Non-Reactive (Nonreactive); Hepatitis C Antibody Non-Reactive (Nonreactive); Rubella IgG Reactive (Nonreactive); Syphilis Antibodies Non-reactive
== END | disposition home or self-care (01) ==
LOC: LAB 13:15
PROVIDERS: PCP Internal Medicine; Referring Provider Obstetrics & Gynecology; Visit Provider Obstetrics & Gynecology
DX: Z34.81 Encounter for supervision of other normal pregnancy, first trimester (principal)
CPT/HCPCS: 36415; 85025; 86703; 86762; 86780; 86803; 86850; 86900; 86901; 87340

== ENCOUNTER → 2022-07-16 | Outpatient (CLI) | payer OTHER, SELFPAY | END | disposition home or self-care (01) | PROVIDERS: PCP Internal Medicine; Visit Provider Registered Nurse | DX: Z36.1 Encounter for antenatal screening for raised alphafetoprotein level (principal) | CPT/HCPCS: 36415 ==

== ENCOUNTER → 2022-08-10 | Outpatient (CLI) | payer OTHER, SELFPAY ==
--- NOTE | 2022-08-10 13:25 | US_ITS ---
STUDY: SECOND AND THIRD TRIMESTER OBSTETRICAL ULTRASOUND REASON FOR EXAM: Female, 26 years old anatomy LMP: 03/26/2022. TECHNIQUE: Transabdominal and Transvaginal TECHNICAL QUALITY: Adequate. PRIOR ULTRASOUND: None. FINDINGS: There is a single intrauterine fetus. The fetus is in an transverse lie with the head on the maternal left side. There is demonstrated cardiac activity with a heart rate of 147 bpm. There is a normal amniotic fluid volume. The largest amniotic fluid pocket measures 6 cm x 5.2 cm. The amniotic fluid index (ANDIE) is within normal limits. The placenta is anterior in location and is not low lying. There are Grade 0 placental changes. The cervix measures 4.95 cm in length. The bilateral adnexal regions are normal. BIOMETRY: BPD: 4.57 cm: 19 weeks, 6 days HC: 16.63 cm: 19 weeks, 2 days AC: 14.84 cm: 20 weeks, 1 days FL: 2.78 cm: 18 weeks, 4 days CI: 82% FL/BPD: 61% FL/HC: FL/AC: 19% HC/AC: 1.12 age by current US: 19 weeks, 2 days. RAFA by current US: 01/02/2023. Estimated weight: 294 grams, +/- 44 grams, 38 %. Age by LMP: 19 weeks, 4 days. RAFA by LMP: 12/31/2022. ANATOMY: Gender: Male Cranium: Normal lateral ventricles. Normal choroid plexus. Normal cerebellum. Normal cisterna magna. Normal face, nose and lips. Chest: Normal 4-chamber heart. Abdomen/Pelvis: Normal diaphragm. Normal stomach. Normal abdominal wall. Normal cord insertion. Normal 3 vessel cord. Normal kidneys. Normal bladder. Spine: Normal cervical spine. Normal thoracic spine. Limited visualization of the lumbar spine and sacrum. Repeat examination recommended. Extremities: Normal bilateral upper extremities. Normal bilateral lower extremities. US/OB Anatomy Scan IMPRESSION: Single live uterine gestation with a mean gestational age of 19 weeks and 2 days. Limited visualization of the lumbar spine and sacrum. Repeat examination recommended. Electronically Signed: Randall Iniguez MD at 15:48 EST ,
== END | disposition home or self-care (01) ==
LOC: OPUS 13:22
PROVIDERS: PCP Internal Medicine; Visit Provider Obstetrics & Gynecology
DX: O09.90 Supervision of high risk pregnancy, unspecified, unspecified trimester (principal)
CPT/HCPCS: 76805; 76817

== ENCOUNTER → 2022-08-19 | Outpatient (CLI) | payer OTHER, SELFPAY ==
--- NOTE | 2022-08-19 15:23 | US_ITS ---
STUDY: SECOND AND THIRD TRIMESTER OBSTETRICAL ULTRASOUND - LIMITED REASON FOR EXAM: Female, 26 years old follow up views spine sacrum TECHNIQUE: Transabdominal PRIOR ULTRASOUND: 08/10/2022. FINDINGS: There is a single intrauterine fetus. The fetus is in a breech presentation. There is demonstrated cardiac activity with a heart rate of 157 bpm. There is a normal amniotic fluid volume. The placenta is anterior in location and is not low lying. There are Grade 0 placental changes. Normal spine. US/OB Limited (No Biometrics) IMPRESSION: Normal spine. Electronically Signed: Edil Cordoba MD at 17:53 EST ,
== END | disposition home or self-care (01) ==
LOC: OPUS 15:21
PROVIDERS: PCP Internal Medicine; Referring Provider Obstetrics & Gynecology; Visit Provider Obstetrics & Gynecology
DX: Z33.1 Pregnant state, incidental (principal); Z3A.14 14 weeks gestation of pregnancy
CPT/HCPCS: 76815

== ENCOUNTER → 2022-09-25 | Outpatient (CLI) | payer OTHER, SELFPAY ==
[2022-09-25 16:17] LABS: ROM Internal Control Test YES-OK TO RESULT pt. (Internal QC); ROM Patient Test Negative (Negative)
== END | disposition home or self-care (01) ==
PROVIDERS: PCP Internal Medicine; Referring Provider Advanced Practice Midwife; Visit Provider Advanced Practice Midwife
DX: R35.0 Frequency of micturition (principal); N89.8 Other specified noninflammatory disorders of vagina
CPT/HCPCS: 84112; 87086

== ENCOUNTER → 2022-10-13 | Outpatient (CLI) | payer OTHER, SELFPAY ==
[2022-10-13 09:54] LABS: Absolute Lymphocyte Count 1.45 X10^3/uL (0.83-4.51); Absolute Neutrophil Count 7.3 X10^3/uL (2.0-7.7); Basophil# 0.03 X10^3/uL; Basophil% 0.3 % (0-1); Eosinophil# 0.05 X10^3/uL; Eosinophils% 0.5 % (0-5); Hematocrit 34.2 % (37-47); Hemoglobin 11.6 g/dL (12.0-15.0); Lymphocyte # 1.45 X10^3/ul (0.83-4.51); Lymphocyte % 15.6 % (19-41); Mean Corp Hgb Conc 33.9 g/dL (32-36); Mean Corpuscular Hgb 31.6 pg (27.0-32.0); Mean Corpuscular Volume 93.2 fL (81-99); Mean Platelet Vol. 9.9 fl (6.2-12.0); Monocyte% 4.3 % (0-10); NRBC Flagged by Analyzer 0 % (0-5); Neutrophil # 7.33 X10^3/uL (2.7-7.7); Neutrophil % 78.9 % (47-70); Platelet Count 213 K/mm3 (150-450); RBC Distribution Width CV 12.5 % (11.6-14.6); Red Blood Count 3.67 M/mm3 (4.2-5.4); White Blood Count 9.3 K/mm3 (4.4-11.0)
[2022-10-13 10:14] LABS: Glucose Challenge Gest 1H 50g 105 mg/dL (70-140)
[2022-10-13 10:43] LABS: HIV - WCH Non-Reactive (Nonreactive); Syphilis Antibodies Non-reactive
== END | disposition home or self-care (01) ==
LOC: LAB 09:18
PROVIDERS: PCP Internal Medicine; Referring Provider Obstetrics & Gynecology; Visit Provider Obstetrics & Gynecology
DX: O09.90 Supervision of high risk pregnancy, unspecified, unspecified trimester (principal)
CPT/HCPCS: 36415; 82950; 85025; 86703; 86780

== ENCOUNTER → 2022-12-01 | Outpatient (CLI) | payer OTHER, SELFPAY ==
--- NOTE | 2022-12-01 09:30 | US_ITS ---
STUDY: SECOND AND THIRD TRIMESTER OBSTETRICAL ULTRASOUND - LIMITED REASON FOR EXAM: Female, 27 years old growth LMP: March 26, 2022. PRIOR ULTRASOUND: Comparison is made with prior study dated August 10, 2022. TECHNIQUE: Transabdominal TECHNICAL QUALITY: Adequate. FINDINGS: There is a single intrauterine fetus. The fetus is in a cephalic presentation. There is demonstrated cardiac activity with a heart rate of 137 bpm. There is a normal amniotic fluid volume. The largest amniotic fluid pocket measures 5.7 cm. The amniotic fluid index (ANDIE) is 13.2 cm. The placenta is anterior in location and is not low lying. There are Grade 2 placental changes. The cervix was not visualized due to head positioning. BIOMETRY: BPD: 8.8 cm: 35 weeks, 4 days HC: 31.5 cm: 35 weeks, 2 days AC: 31.5 cm: 35 weeks, 3 days FL: 6.4 cm: 33 weeks, 1 days Age by LMP: 35 weeks, 5 days. RAFA by LMP: December 31, 2022. age by prior US: 35 weeks, 3 days. RAFA by prior US: January 02, 2023. age by current US: 35 weeks, 0 days. RAFA by current US: January 05, 2023. Estimated weight: 2559 grams, +/- 384 grams, 30 percentile. US/OB Limited With Biometrics IMPRESSION: Single live intrauterine gestation with a mean gestational age of 35 weeks and 3 days. The measurements obtained today fall within the normal expected range. Electronically Signed: Randall Iniguez MD at 12:59 EDT ,
== END | disposition home or self-care (01) ==
PROVIDERS: PCP Internal Medicine; Referring Provider Obstetrics & Gynecology; Visit Provider Obstetrics & Gynecology
DX: K31.84 Gastroparesis (principal)
CPT/HCPCS: 76816

== ENCOUNTER 2023-01-02 02:50 | Outpatient (CLI) | payer OTHER, SELFPAY ==
[2023-01-02 03:00] VITALS: BMI 23.8
[2023-01-02 03:05] VITALS: BP 120/57; PULSE 76; TEMP 36.2
[2023-01-02 03:09] VITALS: PULSE 69; O2SAT 99
[2023-01-02] MEDS: Mag Hydrox/Al Hydrox/Simeth 30 ML UDC PO (03:58)
--- NOTE | 2023-01-05 13:15 | OB.TRI.PN ---
Progress Notes Date of Service: 01/02/23 Progress Note: Patient presents for triage evaluation secondary to false labor FHT: 125 Moderate variability reactive no decelerations category I tracing [place]: irregular Contractions Assessment and plan: false labor no cervical change Reactive NST, reassuring maternal and status patient discharged to home to follow-up as shcheduled. See problem list details for additional plan information. Charges/Coding Procedures Urinary/Genital [id number]: [id number] non-stress test Interp
== END 2023-01-02 06:03 | disposition home or self-care (01) ==
LOC: WPOUT 02:58 → WP 02:58
PROVIDERS: PCP Internal Medicine; Referring Provider Obstetrics & Gynecology; Visit Provider Obstetrics & Gynecology
DX: O47.9 False labor, unspecified (principal); Z3A.00 Weeks of gestation of pregnancy not specified
CPT/HCPCS: 59025; 59050

== ENCOUNTER 2023-01-07 19:20 | Inpatient (IN) | payer OTHER, SELFPAY ==
[2023-01-07 19:54] VITALS: BP 111/57; PULSE 83; TEMP 36.5; O2SAT 98
[2023-01-07 19:55] VITALS: BP 111/57; PULSE 74; PULSE 76; O2SAT 98
[2023-01-07 20:20] LABS: Absolute Lymphocyte Count 1.59 X10^3/uL (0.83-4.51); Absolute Neutrophil Count 5.6 X10^3/uL (2.0-7.7); Basophil# 0.02 X10^3/uL; Basophil% 0.3 % (0-1); Eosinophil# 0.04 X10^3/uL; Eosinophils% 0.5 % (0-5); Hematocrit 36.3 % (37-47); Hemoglobin 12.7 g/dL (12.0-15.0); Lymphocyte # 1.59 X10^3/ul (0.83-4.51); Lymphocyte % 20.5 % (19-41); Mean Corpuscular Volume 91.4 fL (81-99); Mean Platelet Vol. 10.4 fl (6.2-12.0); Monocyte# 0.46 X10^3/uL; Monocyte% 5.9 % (0-10); NRBC Flagged by Analyzer 0 % (0-5); Neutrophil % 72.3 % (47-70); Platelet Count 182 K/mm3 (150-450); RBC Distribution Width CV 12.3 % (11.6-14.6); RBC Distribution Width SD 41.3 fl (35.1-43.9); Red Blood Count 3.97 M/mm3 (4.2-5.4); White Blood Count 7.8 K/mm3 (4.4-11.0)
--- NOTE | 2023-01-07 20:23 | HP.PCM.OB_ITS ---
HPI - General General Date of Admission: 01/07/23 HPI Narrative HATTIE FORD, is a 27 F who presents for IOL secondary to postdates. she denies any vb lof admits good fm Maternal Data Information RAFA Calculator Estimated Delivery Date Method Current WG Current Estimate 12/31/22 LMP (Certain) 41w 0d PFSH PFSH Medical History Abdominal pain Alcohol use Back pain Biliary dyskinesia Constipation Constipation Diarrhea Gastroparesis Gastroparesis GBS (group B streptococcus) UTI complicating Generalized anxiety disorder GERD (gastroesophageal reflux disease) Migraines Nausea & vomiting Non-smoker PONV (postoperative nausea and vomiting) Segmental and somatic dysfunction of lumbar region Segmental and somatic dysfunction of thoracic region Home Medications PNV 153-FA 400 mcg-om3 35 mg-dha 25 mg-epa 5 mg-fish oil chew tablet 1 tab PO 05/15/22 [History Last Taken 01/01/23] buspirone 10 mg tablet 5 mg PO BID 05/15/22 [History Last Taken 01/01/23] promethazine 25 mg tablet 25 mg PO Q6H PRN nausea and vomiting #30 tabs 06/10/22 [Rx Last Taken Unknown] metoclopramide HCl 5 mg tablet (Reglan) 5 mg PO QAC #90 tabs 12/07/22 [Rx Last Taken 01/01/23] Allergy/AdvReac Type Severity Reaction Status Date / Time pumpkin Allergy Intermediate Swelling Verified 12/25/22 13:03 Family History Mother Heart disease Hypotension Lupus Father Skin cancer Aunt Migraine Surgical History History of colonoscopy History of laparoscopic cholecystectomy (~01/2020) Social History adopted: No household members: spouse housing: house current occupational status: employed 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 current occupational exposures/hazards: No pets and animals: No history of recent travel: Yes ([place]) out of state: Yes out of country: No sexually active: Yes Smoking Status: Never smoker alcohol intake: former details: social- not while substance use type: does not use diet: lactose free and low carbohydrate well-balanced diet: daily or most days caffeine: No eating out: rarely or never during the past year weight has: remained stable what type of physical activity do you participate in: other details: Cross Fit frequency: 3-4 times per week duration: 45-60 minutes/day deonte/islam: Anglican seatbelt use: always do you feel safe at home: Yes additional social history: Gabriel - 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 @ [facility] History 1 Elective abortions Hx Para 0 Spontaneous abortions Hx # Term Pregnancies Ectopic pregnancies Hx # Pregnancies Multiple births # of living children Visit Details Expected Delivery Route/Plan Labor Preferences- CB/BF classes: enc labor support person: Gabriel labor intervention preferences: [] pain management options preferred: limited intervention but will consider epidural cut cord/dad catch: cord : yes PP control planned:discussed discussed possible routes of delivery and associated risks: [] special requests: [] Plans Covid status: discussed Flu vaccine: no Tdap vaccine: given Rhogam: na LARC form signed: yes Problem list reviewed and updated with the most current plan of care details and appropriate orders placed. Relevant counseling for the gestational age provided. Continue routine care and follow up unless otherwise noted in visit notes/problem list details OB Flowsheet Initial Weight: Not Recorded Date -?-?-?-?-?-?-?-?-?-?-?-?- EGA Weight BP Urine Prot -?-?-?-?-?-?-?-?-?-?-?-?- Glucose FHR FuHt Pres Dilation -?-?-?-?-?-?-?-?-?-?-?-?- Effaced St Visit Note 05/27/22 -?-?-?-?-?-?-?-?-?-?-?-?- 8w 6d 128 lb 6 oz 105/64 -?-?-?-?-?-?-?-?-?-?-?-?- 178 -?-?-?-?-?-?-?-?-?-?-?-?- JV- single live IUP measuring 9 weeks 2 days and consistent with LMP. (twin sister patient with me at [facility], mom is Kathi Villarreal) 06/10/22 -?-?-?-?-?-?-?-?-?-?-?-?- 10w 6d 123 lb 8 oz 100/63 Nega tive -?-?-?-?-?-?-?-?-?-?-?-?- Negative 160 -?-?-?-?-?-?-?-?-?-?-?-?- JV- no signs of ANN-MARIE today. CRL of baby is 11 weeks. no concerns today. return in 4 weeks 07/08/22 -?-?-?-?-?-?-?-?-?-?-?-?- 14w 6d 128 lb 2 oz 103/67 Nega tive -?-?-?-?-?-?-?-?-?-?-?-?- Negative 151 -?-?-?-?-?-?-?-?-?-?-?-?- LC-doing well. n o concerns. no vb/cramping. discussed and accepts AFP. has anatomy scheduled. 07/27/22 -?-?-?-?-?-?-?-?-?-?-?-?- 17w 4d 129 lb 3 oz 102/66 -?-?-?-?-?-?-?-?-?-?-?-?- 153 -?-?-?-?-?-?-?-?-?-?-?-?- -work in for v aginal lump. Exam confirms small inclusion cyst left labia. Reassured. No FM yet. Denies VB, cramping. 08/19/22 -?-?-?-?-?-?-?--?-?-?-?-?- 20w 6d 132 lb 8 oz 100/66 Canc elled -?-?-?-?-?-?-?-?-?-?-?-?- Cancelled 148 -?-?-?-?-?-?-?-?-?-?-?-?- -No Vb, crampi ng. Feeling movement. Has follow up US today to complete spinal views 09/15/22 -?-?-?-?-?-?-?-?-?-?-?-?- 24w 5d 135 lb 4 oz 101/57 Nega tive -?-?-?-?-?-?-?-?-?-?-?-?- Negative 155 -?-?-?-?-?-?-?-?-?-?-?-?- JV- no complaint s today. feeling good movement. baby boy name is a surprise. 09/25/22 -?-?-?-?-?-?-?-?-?-?-?-?- 26w 1d 135 lb 8 oz 106/58 Nega tive -?-?-?-?-?-?-?-?-?-?-?-?- Negative 145 25 -?-?-?-?-?-?-?-?-?-?-?-?- KW-No vb/ctx. +F M. possible SROM x 2 days ago, feels like there is extra fluid/discharge. ROM+ and urine culture done today. 10/13/22 -?-?-?-?-?-?-?-?-?-?-?-?- 28w 5d 136 lb 102/64 Negative -?-?-?-?-?-?-?-?-?-?-?-?- Negative 141 28 -?-?-?-?-?-?-?-?-?-?-?-?- MH-No Vb, LOF. G ood FM. 28wk labs, [facility]. Tdap. 10/27/22 -?-?-?-?-?-?-?-?-?-?-?-?- 30w 5d 135 lb 2 oz 108/65 Nega tive -?-?-?-?-?-?-?-?-?-?-?-?- Negative 135 30 -?-?-?-?-?-?-?-?-?-?-?-?- JV- pt complains of left upper quadrant pain. has known gastroparesis and likely her stomach getting kicked by baby. plan 36 week growth scan for gastric emptying problems. 11/09/22 -?-?-?-?-?-?-?-?-?-?-?-?- 32w 4d 137 lb 6 oz 103/64 Nega tive -?-?-?-?-?-?-?-?-?-?-?-?- Negative 135 33 -?-?-?-?-?-?-?-?-?-?-?-?- SM- no vb lof go od fm n oreuglar ctx 11/26/22 -?-?-?-?-?-?-?-?-?-?-?-?- 35w 0d 139 lb 4 oz 105/69 -?-?-?-?-?-?-?-?-?-?-?-?- 135 35 -?-?-?-?-?-?-?-?-?-?-?-?- SM- no vb lof go od fm no regular ctx co pubic bone pain in center 12/09/22 -?-?-?-?-?-?-?-?-?-?-?-?- 36w 6d 140 lb 4 oz 98/45 Nega tive -?-?-?-?-?-?-?-?-?-?-?-?- Negative 155 35 Cephalic 0 .5 -?-?-?-?-?-?-?-?-?-?-?-?- 0 -3 JV- no lof , vaginal bleeding, or dec fm. gbs pos in urine. 12/18/22 -?-?-?-?-?-?-?-?-?-?-?-?- 38w 1d 140 lb 6 oz 115/73 Nega tive -?-?-?-?-?-?-?-?-?-?-?-?- Negative 145 37 0.5 -?-?-?-?-?-?-?-?-?-?-?-?- 0 -3 JV- no com plaints today other than pelvic pressure. labor precautions discussed. 12/25/22 -?-?-?-?-?-?-?-?-?-?-?-?- 39w 1d 140 lb 99/63 Negative -?-?-?-?-?-?-?-?-?-?-?-?- Negative 135 38 Cephalic 0 .5 -?-?-?-?-?-?-?-?-?-?-?-?- 40 -2 KW-+fm, no lof/vb/regular contractions. labor precautions reviewed. 01/01/23 -?-?-?-?-?-?-?-?-?-?-?-?- 40w 1d 140 lb 1 oz 117/73 Nega tive -?-?-?-?-?-?-?-?-?-?-?-?- Negative 135 37 Cephalic 0 .5 -?-?-?-?-?-?-?-?-?-?-?-?- 50 -1 JV- andie 14 , good movement, no lof, vaginal bleeding, or contractions. setting up IOL for 41 weeks. NST FHR Rate Baby A Baseline: 140 Variability:: Moderate Accelerations:: 15 x 15 Decelerations:: None NST Reactive:: Yes FHR Category:: Category I Uterine Activity:: irregular ROS Constitutional Constitutional: Reports systems reviewed and no addt'l complaints, except as documented Eyes Eyes: Denies change in vision ENT HEENT: Reports systems reviewed and no addt'l complaints, except as documented; Denies headache(s) Cardiovascular Cardiovascular: Reports systems reviewed and no addt'l complaints, except as documented; Denies chest pain or dyspnea Respiratory/Chest Respiratory/Chest: Reports systems reviewed and no addt'l complaints, except as documented Gastrointestinal Gastrointestinal: Reports systems reviewed and no addt'l complaints, except as documented; Denies abdominal pain Genitourinary Genitourinary: Reports systems reviewed and no addt'l complaints, except as documented, contractions Details: present (irregular) and movement Details: present; Denies dysuria or genital lesions Musculoskeletal Musculoskeletal: Reports systems reviewed and no addt'l complaints, except as documented Neurologic Neurologic: Reports systems reviewed and no addt'l complaints, except as documented Endocrine Endocrinology: Reports systems reviewed and no addt'l complaints, except as documented Vital Signs Vital Signs Vital Signs: 01/07/23 19:55 01/07/23 19:55 01/07/23 19:55 Temperature Temperature Source Pulse Rate 74 76 Blood Pressure 111/57 L BP Systolic 111 BP Diastolic 57 Pulse Ox 01/07/23 19:55 01/07/23 19:54 01/07/23 19:54 Temperature Temperature Source Tympanic Pulse Rate Blood Pressure 111/57 L BP Systolic 111 BP Diastolic 57 Pulse Ox 98 01/07/23 19:54 01/07/23 19:54 01/07/23 19:54 Temperature 97.7 F L Temperature Source Pulse Rate 83 Blood Pressure BP Systolic BP Diastolic Pulse Ox 98 Physical Exam Const alert, oriented x3, no apparent distress and healthy appearing HEENT normocephalic and moist oral mucous membranes Head and Scalp: atraumatic Neck full ROM, no lymphadenopathy, supple and thyroid normal General: trachea midline Lymph Lymphatic: no lymphadenopathy noted Chest inspection of chest normal Resp normal respiratory effort Cardio regular rate GI normal to inspection, nondistended, normoactive bowel sounds, soft to palpation and non-tender Inspection: gravid external exam normal Manual OB Exam: estimated gestational size appropriate, presentation cephalic, dilated, effaced and station Extremity normal to inspection General Extremity: Negative for edema Skin no rashes or lesions noted Neuro no focal motor deficits and deep tendon reflexes 2+ bilaterally Motor Exam: strength 5/5 throughout and clonus absent Psych mental status grossly normal Labs Labs Labs: Blood Type O POSITIVE Antibody Screen NEGATIVE Hct 36.3 % (37-47) L Hgb 12.7 g/dL (12.0-15.0) Obstetrics US Syphilis Total Ab Non-reactive Rubella IgG Antibody Reactive (Nonreactive) Hep Bs Antigen Non-Reactive (Nonreactive) Chlamydia DNA (ROSANA) Negative (Negative) Neisseria gonorrhoeae DNA (ROSANA) Negative (Negative) HIV 1&2 Antibody Non-Reactive (Nonreactive) Glucose 1 Hr 50 gm 105 mg/dL (70-140) Miscellaneous Test Assessment & Plan (1) GBS (group B streptococcus) UTI complicating : COMMENT: need treatment in labor (2) Supervision of high risk , antepartum: COMMENT: [id number], RAFA 12/31/22, boy Gabriel (3) : QUALIFIERS: Weeks of gestation: 39 weeks Qualified Code(s): Z3A.39 - 39 weeks gestation of COMMENT: GBS neg, NIPT low risk, discussed carrier testing, nl anatomy, nl growth & ANDIE (4) LGSIL (low grade squamous intraepithelial dysplasia): (5) Generalized anxiety disorder: COMMENT: Stable years (6) GERD (gastroesophageal reflux disease): COMMENT: controlled with Tums (7) Encounter for induction of labor: PLAN: Plan Patient presents IOL, plan management for with cytotec. Pain management: considers epidural. GBS positive plan pcn Management of any complications: none I have reviewed the PFSH and made any clinically relevant updates.
[2023-01-07 20:24] VITALS: BMI 27.3
[2023-01-07] MEDS: miSOPROStol 25 MCG TABLET VAGINAL (20:30)
[2023-01-07] MEDS: Lactated Ringers 1,000 ML 50 ML IV (20:30)
[2023-01-07 21:01] LABS: Syphilis Antibodies Non-reactive
[2023-01-07] MEDS: fentaNYL 100 MCG/2 ML Ampul IV (23:28)
[2023-01-07 23:34] VITALS: BP 106/60; PULSE 74
[2023-01-07 23:38] VITALS: PULSE 57; O2SAT 100
[2023-01-08] VITALS (144 sets, daily range): BP systolic 90–130; BP diastolic 50–72; PULSE 54–101; TEMP 36.1–37.1; O2SAT 89–100
[2023-01-08] MEDS: fentaNYL-bupivacaine (epidural) 100 ML BAG EPIDURAL ×4 (01:15→15:50)
[2023-01-08] MEDS: Terbutaline 1 MG/ML Vial 0.25 MG SC (02:11)
[2023-01-08] MEDS: Lactated Ringers 1,000 ML 200 ML IV ×4 (03:25→15:51)
[2023-01-08] MEDS: Penicillin G 3,000,000 Units 50 ML 100 UNITS IV ×4 (03:55→16:17)
[2023-01-08] MEDS: LACTATED RINGERS 500 ML 999 ML IV ×2 (08:25→12:33)
[2023-01-08] MEDS: Oxytocin 15 Units/NS 250ml 15 UNITS/250 ML IV.SOLN 2 UNITS IV (09:31)
[2023-01-08] MEDS: busPIRone 5 MG Tablet 7.5 MG PO (12:23)
[2023-01-08] MEDS: Ondansetron 4 MG/2 ML Vial IV (16:12)
--- NOTE | 2023-01-08 17:18 | PN_ITS ---
Progress Note patient comfortable with epidural current tracing: FHT: 140 Moderate variability reactive occasional variables category II tracing [place]: Strong Contractions q 2-3 minutes Pitocin at 6 mu SVE 6-7/90/+1 per nurse exam with moderate perineal swelling A/P: continue position changes titrate pitocin per policy anticipate Dr Woodward aware of FHT and agrees with plan of care Assessment & Plan Assessment/Plan (1) Encounter for induction of labor: PLAN: continue pitocin per protocol (2) GBS (group B streptococcus) UTI complicating : (3) Supervision of high risk , antepartum: (4) : QUALIFIERS: Weeks of gestation: 39 weeks Qualified Code(s): Z3A.39 - 39 weeks gestation of (5) LGSIL (low grade squamous intraepithelial dysplasia): (6) Generalized anxiety disorder: Multi Select Codes Urinary/Genital Urinary/Genital CPT Codes: No Charge
[2023-01-08] MEDS: Methylergonovine 0.2 MG/ML Ampul IM (18:30)
--- NOTE | 2023-01-08 18:44 | OP.PCM_ITS ---
Assessment & Plan (1) Vaginal delivery: PLAN: KW 41.1 IOL [place] (2) Encounter for induction of labor: (3) GBS (group B streptococcus) UTI complicating : COMMENT: need treatment in labor (4) Supervision of high risk , antepartum: COMMENT: [id number], RAFA 12/31/22, boy Gabriel (5) : QUALIFIERS: Weeks of gestation: 39 weeks Qualified Code(s): Z3A.39 - 39 weeks gestation of COMMENT: GBS neg, NIPT low risk, discussed carrier testing, nl anatomy, nl growth & ANDIE (6) LGSIL (low grade squamous intraepithelial dysplasia): (7) Gastroparesis: (8) Delayed gastric emptying: (9) GERD (gastroesophageal reflux disease): COMMENT: controlled with Tums Maternal Data Information RAFA Calculator Estimated Delivery Date Method Current WG Current Estimate 12/31/22 LMP (Certain) 41w 1d Final RAFA: 12/31/22 Final RAFA Source: US >20 weeks Gestational age: 41.1 weeks Vaginal Delivery Maternal Presentation Maternal Presentation: Medically Indicated Induction Maternal Presentation: Progressed to 10cm dilated and made steady progress with effective maternal pushing. Delivered the head in KAVEH presentation. The head was delivered atraumatically and no nuchal cord was identified. The anterior and posterior shoulders delivered without complication followed by the rest of the infant and the was placed on the maternal abdomen. Delayed cord clamping was employed for approximately 3 minutes. Cord was clamped and cut and gentle traction was applied to the cord and the placenta delivered spontaneously. Immediately following, it was noted to be intact with a 3 vessel cord. The perineum and vagina were inspected and noted to have a second degree laceration which was repaired with 3-0 Vicryl in the usual fashion. EBL was 150cc. Patient and infant tolerated delivery well. Apgars 8/9. Dr Woodward notified of vaginal delivery and orders reviewed. Physician agrees with current plan of care. Type of Induction: Pitocin and Cytotec Medical Reason for Induction: Post term Operative Information Date of Procedure: 01/08/23 Pre-Operative Diagnosis: See AP comments Post-Operative Diagnosis: Same Surgery / Procedure Performed: Spontaneous Vaginal Delivery lock technician #1: Tara Carbajal Type of Anesthesia: Epidural Estimated Blood Loss: 150 Time of Delivery: 18:17 Findings Presentation: Vertex Amniotic Membrane Rupture Type: Spontaneous Amniotic Fluid Description: Clear Placental Delivery Description: Spontaneous Placenta Disposition: [facility] Cord Vessel Description: 3 Vessels Cord Entanglement: None Cord Gases: ABG and VBG A Gender: Male (1 minute): 8 (5 minute): 9 Delayed Cord Clamping: Yes Post Vaginal Delivery Medications Given After Delivery: IV Pitocin and IM Methergin Episiotomy Description: None Laceration: 2nd degree Complication Complications: None Multi Select Codes Urinary/Genital Urinary/Genital CPT Codes: 85555 Vaginal Delivery [facility]
--- NOTE | 2023-01-08 18:49 | DCINST_ITS ---
Discharge Instructions Diet Discharge Diet: No restrictions Activity Discharge Activity: Return to Normal Activity May resume sexual activity in: 6-8 weeks Dressing / Incision Call your doctor if you observe: Fever of 101 or Higher, Coldness, Increased Pain, Numbness or Tingling, Change in Color, Inability to urinate, Inability to have a bowel movement, Using more than 1 pad per hour, Shortness of breath, Dizziness, Fainting spells, Swelling in the ankles, Chest pain, Increased palpitations (irregular heartbeat), Calf discomfort and Uncontrolled pain Follow Up Care Please Follow Up With: Tara Carbajal CNM When: Please call the office to schedule your follow up appointment in 6 weeks. If you had high blood pressure please call to schedule an appointment in 2 weeks. Test Results: Test results from this visit will be discussed in further detail at your follow- up appointment, if applicable. Discharge Plan Admission Admit Date/Time: 01/07/23 19:20 Attending Provider: Sonya Goins Primary Care Provider: Sandrine Stock Discharge Orders/Prescriptions Prescriptions: No Action PNV no.[id number] 400 mcg-35 mg- 25 mg-5 mg tablet,chewable 1 tab PO 1XD promethazine 25 mg tablet 25 mg PO Q6H PRN (Reason: nausea and vomiting) Qty: 30 6RF metoclopramide HCl [Reglan] 5 mg tablet 5 mg PO QAC Qty: 90 1RF Rx Instructions: administer 30 minutes before meals buspirone 10 mg tablet 5 mg PO BID Referrals / Follow Up: Sandrine Stock DO [Primary Care Provider] -
[2023-01-08] MEDS: Oxytocin 15 Units/NS 250ml 15 UNITS/250 ML IV.SOLN 83 UNITS IV (19:05)
[2023-01-08] MEDS: Ibuprofen 600 MG Tablet PO (19:39)
[2023-01-08] MEDS: busPIRone 5 MG Tablet PO (23:01)
[2023-01-09] VITALS (11 sets, daily range): BP systolic 105–125; BP diastolic 53–60; PULSE 73–90; RESP 14–16; TEMP 36.1–36.6; O2SAT 96–98
[2023-01-09] MEDS: Ibuprofen 600 MG Tablet PO ×2 (03:37→15:31)
[2023-01-09] MEDS: Senna/Docusate Sodium 1 Tablet PO ×3 (05:46→12:24)
[2023-01-09] MEDS: Acetaminophen 500 MG Tablet 1000 MG PO (07:05)
--- NOTE | 2023-01-09 09:03 | PCM.PN.OB ---
Subjective Subjective Patient doing well without complaints. Tolerating PO. Ambulating and voiding without difficulty. Feeding well. Denies chest pain, shortness of breath, calf pain/swelling, fevers, chills, lightheadedness. Objective Data Objective Data Vital Signs: Vital Signs Temp Pulse Resp BP Pulse Ox O2 Del Method 97.8 F 84 16 107/53 L 97 Room Air 01/09/23 03:20 01/09/23 03:20 01/09/23 03:20 01/09/23 03:20 01/09/23 03:20 01/09/23 00:00 Oxygen Delivery Method Room Air Weight: 140 lb 4 oz Body Mass Index (BMI) 27.3 Intake & Output: Intake and Output for Last 24 Hours 01/07/23 01/08/23 01/09/23 23:59 23:59 23:59 Intake Total 273.98 / 378.98 6440.36 / 6440.36 Output Total 3400 / 3400 1450 / 1450 Balance 273.98 / 378.98 3040.36 / 3040.36 -1450 / -1450 Lab / Micro Data Attestation: I reviewed the patient's lab results. 01/07/23 20:00 ROS Constitutional Constitutional: Reports systems reviewed and no addt'l complaints, except as documented; Denies anorexia or headache(s) Cardiovascular Cardiovascular: Reports systems reviewed and no addt'l complaints, except as documented; Denies dizziness, dyspnea, nausea or tachypnea Respiratory/Chest Respiratory/Chest: Reports systems reviewed and no addt'l complaints, except as documented; Denies cough, dyspnea, shortness of breath at rest or tachypnea Gastrointestinal Gastrointestinal: Reports systems reviewed and no addt'l complaints, except as documented; Denies abdominal pain, constipation or nausea Genitourinary Genitourinary: Reports systems reviewed and no addt'l complaints, except as documented; Denies burning urination, difficulty urinating, dysuria, urinary frequency or urinary incontinence Musculoskeletal Musculoskeletal: Reports systems reviewed and no addt'l complaints, except as documented Integumentary Integumentary: Reports systems reviewed and no addt'l complaints, except as documented Neurologic Neurologic: Reports systems reviewed and no addt'l complaints, except as documented; Denies abnormal speech, dizziness or headache(s) Psychiatric Psychiatric: Reports systems reviewed and no addt'l complaints, except as documented Endocrine Endocrinology: Reports systems reviewed and no addt'l complaints, except as documented Hematologic/Lymphatic Hematologic/Lymphatic: Reports systems reviewed and no addt'l complaints, except as documented Physical Exam Const alert, oriented x3 and no apparent distress Neck full ROM Chest inspection of chest normal and inspection of breasts normal Nipple/Areola: nipples/areola normal Resp normal respiratory effort, normal air movement and no retractions Effort and Inspection: able to speak in complete sentences and symmetric chest movement GI soft to palpation Bladder / Kidney Exam: bladder normal to palpation Uterus Palpation: uterus fundus Extremity normal to inspection and full ROM Psych mental status grossly normal, thought process normal and cooperative Assessment & Plan (1) Vaginal delivery: PLAN: s/p PPD # 1 1. routine post delivery care 2. breast feeding- support given 3. rh positive 4. rubella immune (2) GBS (group B streptococcus) UTI complicating : COMMENT: need treatment in labor (3) Supervision of high risk , antepartum: COMMENT: [id number], RAFA 12/31/22, boy Gabriel Charges/Coding Multi Select Codes Urinary/Genital Urinary/Genital CPT Codes: No Charge
[2023-01-09] MEDS: busPIRone 5 MG Tablet 7.5 MG PO ×2 (10:33→17:11)
[2023-01-10] MEDS: Senna/Docusate Sodium 1 Tablet PO (00:27)
[2023-01-10] MEDS: Acetaminophen 500 MG Tablet 1000 MG PO (00:27)
[2023-01-10 02:55] VITALS: BP 105/53; PULSE 69; RESP 16; TEMP 36.4; O2SAT 97
[2023-01-10 02:58] VITALS: BP 105/53; PULSE 64; PULSE 70; O2SAT 96
[2023-01-10] MEDS: Ibuprofen 600 MG Tablet PO (03:05)
[2023-01-10] MEDS: busPIRone 5 MG Tablet 7.5 MG PO (05:59)
--- NOTE | 2023-01-10 07:42 | PCM.PN.OB ---
Subjective Subjective Patient doing well without complaints. Tolerating PO. Ambulating and voiding without difficulty. Feeding well. Denies chest pain, shortness of breath, calf pain/swelling, fevers, chills, lightheadedness. Objective Data Objective Data Vital Signs: Vital Signs Temp Pulse Resp BP Pulse Ox O2 Del Method 97.6 F L 70 16 105/53 L 96 Room Air 01/10/23 02:55 01/10/23 02:58 01/10/23 02:55 01/10/23 02:58 01/10/23 02:58 01/10/23 02:55 Oxygen Delivery Method Room Air Weight: 140 lb 4 oz Body Mass Index (BMI) 27.3 Intake & Output: Intake and Output for Last 24 Hours 01/08/23 01/09/23 01/10/23 23:59 23:59 23:59 Intake Total 6440.36 / 6440.36 Output Total 3400 / 3400 1450 / 1450 Balance 3040.36 / 3040.36 -1450 / -1450 Lab / Micro Data Attestation: I reviewed the patient's lab results. 01/07/23 20:00 ROS Constitutional Constitutional: Reports systems reviewed and no addt'l complaints, except as documented; Denies anorexia or headache(s) Cardiovascular Cardiovascular: Reports systems reviewed and no addt'l complaints, except as documented; Denies dizziness, dyspnea, nausea or tachypnea Respiratory/Chest Respiratory/Chest: Reports systems reviewed and no addt'l complaints, except as documented; Denies cough, dyspnea, shortness of breath at rest or tachypnea Gastrointestinal Gastrointestinal: Reports systems reviewed and no addt'l complaints, except as documented; Denies abdominal pain, constipation or nausea Genitourinary Genitourinary: Reports systems reviewed and no addt'l complaints, except as documented; Denies burning urination, difficulty urinating, dysuria, urinary frequency or urinary incontinence Musculoskeletal Musculoskeletal: Reports systems reviewed and no addt'l complaints, except as documented Integumentary Integumentary: Reports systems reviewed and no addt'l complaints, except as documented Neurologic Neurologic: Reports systems reviewed and no addt'l complaints, except as documented; Denies abnormal speech, dizziness or headache(s) Psychiatric Psychiatric: Reports systems reviewed and no addt'l complaints, except as documented Endocrine Endocrinology: Reports systems reviewed and no addt'l complaints, except as documented Hematologic/Lymphatic Hematologic/Lymphatic: Reports systems reviewed and no addt'l complaints, except as documented Physical Exam Const alert, oriented x3 and no apparent distress Neck full ROM Resp normal respiratory effort, normal air movement and no retractions Effort and Inspection: able to speak in complete sentences and symmetric chest movement GI soft to palpation Bladder / Kidney Exam: bladder normal to palpation Uterus Palpation: uterus fundus firm Extremity normal to inspection and full ROM Psych mental status grossly normal, thought process normal and cooperative Assessment & Plan (1) Vaginal delivery: PLAN: s/p PPD # 2 1. routine post delivery care 2. breast feeding- support given 3. rh positive 4. rubella immune 5. discharge home (2) Supervision of high risk , antepartum: COMMENT: [id number], RAFA 12/31/22, boy Gabriel (3) : QUALIFIERS: Weeks of gestation: 39 weeks Qualified Code(s): Z3A.39 - 39 weeks gestation of COMMENT: GBS neg, NIPT low risk, discussed carrier testing, nl anatomy, nl growth & ANDIE (4) GBS (group B streptococcus) UTI complicating : COMMENT: need treatment in labor Charges/Coding Multi Select Codes Urinary/Genital Urinary/Genital CPT Codes: No Charge
--- NOTE | 2023-01-10 07:44 | DCINST_ITS ---
Discharge Instructions Diet Discharge Diet: No restrictions Activity May resume sexual activity in: 6-8 weeks Dressing / Incision Call your doctor if you observe: Fever of 101 or Higher, Coldness, Increased Pain, Numbness or Tingling, Change in Color, Inability to urinate, Inability to have a bowel movement, Using more than 1 pad per hour, Shortness of breath, Dizziness, Fainting spells, Swelling in the ankles, Chest pain, Increased palpitations (irregular heartbeat), Calf discomfort and Uncontrolled pain Follow Up Care Please Follow Up With: Tara Carbajal CNM Test Results: Test results from this visit will be discussed in further detail at your follow- up appointment, if applicable. Discharge Plan Admission Admit Date/Time: 01/07/23 19:20 Attending Provider: Sonya Goins Primary Care Provider: Sandrine Stock Discharge Orders/Prescriptions Prescriptions: No Action PNV no.[id number] 400 mcg-35 mg- 25 mg-5 mg tablet,chewable 1 tab PO 1XD promethazine 25 mg tablet 25 mg PO Q6H PRN (Reason: nausea and vomiting) Qty: 30 6RF metoclopramide HCl [Reglan] 5 mg tablet 5 mg PO QAC Qty: 90 1RF Rx Instructions: administer 30 minutes before meals buspirone 10 mg tablet 5 mg PO BID Referrals / Follow Up: Sandrine Stock DO [Primary Care Provider] - Disposition Disposition (needs filled in before D/C Order can be placed): Home, Self Care
[2023-01-10 08:04] VITALS: BP 100/56; PULSE 57; RESP 16; TEMP 36.2; O2SAT 99
[2023-01-10 08:06] VITALS: BP 100/56; PULSE 61
--- NOTE | 2023-01-11 10:36 | CASEMGMT ---
Social Work Assessment Labor and Delivery Unit Patient Address: [address] [place] [address] [address] [place] [address] Phone number: [phone] Date of Referral: 01/08/2023 Time of Referral: 19:07 Referred By: Solomon Date of Intervention: 01/09/2023? Time of Intervention:? 15:15 Reason for Referral:? Hx of anxiety History obtained from: MOB, Med record Household composition: FOB, MOB, new baby Patient's parent/guardian status:? MOB and FOB have been about 5 years. Medical History: MOB reports no medical concerns. Baby Boy Guillermo Giang, 7.6 lbs with 8/9 apgars. No medical concerns for baby. Educational Status: Denies concerns. Financial Status: Denies concerns, gets no assistance and denies need. Supplies: MOB reports having all needed items. Childcare/Caregiver(s):? MOB and grandparents, MOB plans to stay home Transportation:? Reports adequate transportation. Programs/Agencies Involved: None. ??? Children Services/Legal Issues: Denies. Behavioral Health Issues: MOB denies concerns for her mental health. Reports some history of anxiety/depression that has been well controlled with Buspar. Reports continuing med through under ?s supervision. MOB reports dep/anxiety primary due to specific events and she received counseling. Pt is willing to seek counseling or medical assistance if necessary. Some family history of depression/anxiety. Denies any substance abuse concerns for self or family. Family/Social Stressors: Denies concerns. ? Support Systems: Grandparents Depression Provided education and gave resources. Shaken Baby Provided education, parent reports understanding Safe Sleeping Provided education, parent reports understanding ASSESSMENT:? MOB/FOB responded appropriately. FOB joined later in assessment, prior MOB denies safety concerns. MOB is willing to seek assistance if any mental health concerns arise. Resources provided. PLAN:? No other services requested or indicated. Mira Zavala CONTINUOUS WELD PIPE MILL SUPERVISOR, PARKING METER INSTALLER
== END 2023-01-10 09:00 | disposition home or self-care (01) | DRG 807 ==
PROVIDERS: Obstetrics & Gynecology; Admitting Provider Obstetrics & Gynecology; PCP Internal Medicine; Referring Provider Obstetrics & Gynecology; Visit Provider Obstetrics & Gynecology
DX: O48.0 Post-term pregnancy (principal); Z37.0 Single live birth; O99.344 Other mental disorders complicating childbirth; F41.1 Generalized anxiety disorder; O70.1 Second degree perineal laceration during delivery; O99.824 Streptococcus B carrier state complicating childbirth; Z3A.41 41 weeks gestation of pregnancy
CPT/HCPCS: 59025; 59050; 85025; 86780; 86850; 86900; 86901; 99221; J7120; G0378; J2405

== ENCOUNTER 2023-11-07 23:58 | Inpatient (IN) | payer OTHER, SELFPAY ==
[2023-11-08 00:08] VITALS: BP 106/55; PULSE 81; RESP 18; TEMP 37; O2SAT 98; BMI 23.6
[2023-11-08] MEDS: Ondansetron 4 MG/2 ML Vial IV (02:13)
[2023-11-08] MEDS: Benzocaine 20% Metered Spray 57 gm MUCOUS MEM (02:14)
[2023-11-08] MEDS: Oxymetazoline 0.05% 1 SPRAY SPRAY.BTL 2 SPRAY NASAL (02:14)
[2023-11-08] MEDS: HYDROmorphone 0.5 MG/0.5 ML SYRINGE IV (02:15)
[2023-11-08] MEDS: Lactated Ringers 1,000 ML 125 ML IV ×2 (02:15→10:24)
--- NOTE | 2023-11-08 02:23 | NURSING ---
Patient unable to tolerate NG tube placement. Patients anxiety level is very high. This nurse attempted pt states does not want anyone else to try.
[2023-11-08] MEDS: Pantoprazole Sodium 40 MG in 0.9% Normal Saline (100mL MB+) 100 ML 330 MG IV ×2 (02:36→08:29)
[2023-11-08 06:00] VITALS: BP 99/58; PULSE 81; RESP 18; TEMP 36.8; O2SAT 98
--- NOTE | 2023-11-08 06:00 | RAD_ITS ---
STUDY: X-RAY - ABDOMEN/PELVIS REASON FOR EXAM: Female, 28 years old patient with small bowel obstruction. TECHNIQUE: Two AP supine views of the abdomen and pelvis. COMPARISON: None. FINDINGS: Normal visualized lung bases. There is a large amount of bowel gas within the small bowel and colon. There is no obvious organomegaly, mass, dilated bowel or pathologic calcifications. Normal soft tissue structures. Normal visualized osseous structures. RAD/Abdomen Single View IMPRESSION: Large volume of bowel gas suggests possible ileus. Electronically Signed: Allison Matthews MD at 6:50 EDT ,
[2023-11-08 06:39] LABS: Absolute Lymphocyte Count 0.22 X10^3/uL (0.83-4.51); Absolute Neutrophil Count 3.9 X10^3/uL (2.0-7.7); Basophil# 0.01 X10^3/uL; Basophil% 0.2 % (0-1); Eosinophil# 0.01 X10^3/uL; Eosinophils% 0.2 % (0-5); Hematocrit 38.7 % (37-47); Hemoglobin 13.1 g/dL (12.0-15.0); Lymphocyte # 0.22 X10^3/ul (0.83-4.51); Lymphocyte % 4.9 % (19-41); Mean Corp Hgb Conc 33.9 g/dL (32-36); Mean Corpuscular Hgb 30.9 pg (27.0-32.0); Mean Corpuscular Volume 91.3 fL (81-99); Mean Platelet Vol. 10.7 fl (6.2-12.0); Monocyte# 0.31 X10^3/uL; Monocyte% 6.9 % (0-10); NRBC Flagged by Analyzer 0 % (0-5); Neutrophil # 3.94 X10^3/uL (2.7-7.7); Neutrophil % 87.6 % (47-70); POSITIVE DIFFERENTIAL YES; Platelet Count 160 K/mm3 (150-450); RBC Distribution Width CV 11.8 % (11.6-14.6); RBC Distribution Width SD 39.5 fl (35.1-43.9); Red Blood Count 4.24 M/mm3 (4.2-5.4); White Blood Count 4.5 K/mm3 (4.4-11.0)
[2023-11-08 07:02] LABS: Anion Gap 4 (5-15); BUN 18 mg/dL (7-18); BUN/Creat Ratio 29.7 RATIO (10-20); Calcium,Total 8.1 mg/dL (8.5-10.1); Chloride 109 mmol/L (98-107); Creatinine, Serum 0.61 mg/dL (0.55-1.02); EST Glomerular Filtration Rate 126 mL/min (>60); Est Glom Filt Rate - Afr Amer 152 mL/min (>60); Estimated Creatinine Clearance 107.64 ml/min; Glucose 107 mg/dL (74-106); Magnesium 1.7 mg/dL (1.6-2.6); Potassium 3.8 mmol/L (3.5-5.1); Sodium Level 137 mmol/L (136-145)
[2023-11-08 07:26] LABS: Phosphorus 3.4 mg/dL (2.5-4.9)
--- NOTE | 2023-11-08 07:42 | HP.PCM_ITS ---
HPI - General General Date of Admission: 11/07/23 Chief Complaint: Abdominal pain with nausea HPI Narrative HATTIE FORD, is a 28 F who presents on direct transfer from [facility] for a workup considered consistent with small bowel obstruction. She shares that late last week she developed abdominal discomfort and some mild diarrhea following GI illnesses and both her and her mother. However, she notes that she developed abdominal and back pain that became associated with intense nausea as things progressed and these latter complaints were never featured in her loved ones' experiences. Thus she presented for evaluation in outside hospital where she underwent CT imaging that reportedly showed dilated loops of small bowel transitioning to decompressed small bowel distally and read by radiology is concerning for ileus versus small bowel obstruction. It was at this time I was contacted by the outside hospital upon patient's request for transfer to [place] for care. She follows with Dr. Valles for histories of gastroparesis as well as constipation. Upon her arrival to [place] she underwent attempted placement of NG tube x 3 but this was ultimately unsuccessful and she declined any further attempts based on her anxiety. Overni ght, she reports that she did have some incontinence of stool and her nausea is now completely resolved. Patient's only past surgical history was a laparoscopic cholecystectomy with Dr. Guillen in 2019. [facility] Medical History Abdominal pain Alcohol use Back pain Biliary dyskinesia Constipation Constipation Diarrhea Encounter for induction of labor Gastroparesis Gastroparesis GBS (group B streptococcus) UTI complicating Generalized anxiety disorder GERD (gastroesophageal reflux disease) Migraines Nausea & vomiting Non-smoker PONV (postoperative nausea and vomiting) Segmental and somatic dysfunction of lumbar region Segmental and somatic dysfunction of thoracic region Vaginal delivery Home Medications PNV 153-[id number] 400 mcg-om3 35 mg-dha 25 mg-epa 5 mg-fish oil chew tablet 1 tab PO 1XD 05/15/22 [History Last Taken 11/07/23 08:30] buspirone 10 mg tablet 5 mg PO BID anxiety 05/15/22 [History Last Taken 11/07/23 08:00 5 mg] metoclopramide HCl 5 mg tablet (Reglan) 5 mg PO QAC #90 tabs 07/20/23 [Rx Last Taken 11/06/23 17:00] digestive enzymes 1 cap PO TIDCM gastroparesis 11/08/23 [History Last Taken 11/07/23 08:30] Allergy/AdvReac Type Severity Reaction Status Date / Time pumpkin Allergy Intermediate Swelling Verified 02/23/23 15:14 Family History Mother Heart disease Hypotension Lupus Father Skin cancer Aunt Migraine Surgical History History of colonoscopy History of laparoscopic cholecystectomy (~01/2020) Social History adopted: No household members: spouse housing: house current occupational status: employed 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 current occupational exposures/hazards: No pets and animals: No history of recent travel: Yes ([place]) out of state: Yes out of country: No sexually active: Yes Smoking Status: Never smoker alcohol intake: former details: social- not while substance use type: does not use diet: lactose free and low carbohydrate well-balanced diet: daily or most days caffeine: No eating out: rarely or never during the past year weight has: remained stable what type of physical activity do you participate in: other details: Cross Fit frequency: 3-4 times per week duration: 45-60 minutes/day deonte/zoroastrianism: Pentecostalism seatbelt use: always do you feel safe at home: Yes 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 @ [employer] Constitutional Constitutional: Reports fever(s) Gastrointestinal Gastrointestinal: Reports abdominal pain, constipation, diarrhea and nausea Vital Signs Vital Signs Vital Signs: 11/08/23 02:30 11/08/23 00:30 11/08/23 06:00 Temperature 98.2 F Temperature Source Temporal Pulse Rate 81 Respiratory Rate 18 Respiratory Effort Normal Non-Labored Blood Pressure 99/58 L Blood Pressure Mean 71 Blood Pressure Source Monitor Pulse Ox 98 Oxygen Delivery Method Room Air Room Air Room Air 11/08/23 00:08 Temperature 98.6 F Temperature Source Temporal Pulse Rate 81 Respiratory Rate 18 Respiratory Effort Blood Pressure 106/55 L Blood Pressure Mean 72 Blood Pressure Source Monitor Pulse Ox 98 Oxygen Delivery Method Room Air Weight Weight: 120 lb 13.013 oz Body Mass Index (BMI) 23.6 Physical Exam Const alert, oriented x3 and no apparent distress General Appearance: cooperative Resp normal respiratory effort GI GI Narrative: Mildly distended, soft, nontender to palpation x 4 quadrants Results Lab / Micro Data 11/08/23 05:46 11/08/23 05:46 Labs: Laboratory Results - last 24 hr 11/08/23 05:46: WBC 4.5, RBC 4.24, Hgb 13.1, Hct 38.7, MCV 91.3, MCH 30.9, MCHC 33.9, RDW Std Deviation 39.5, RDW Coeff of Harrison 11.8, Plt Count 160, MPV 10.7, Immature Gran % (Auto) 0.200, Neut % (Auto) 87.6 H, Lymph % (Auto) 4.9 L, [place] % (Auto) 6.9, Eos % (Auto) 0.2, Baso % (Auto) 0.2, Absolute Neuts (auto) 3.9, Absolute Lymphs (auto) 0.22 L, Nucleated RBC % 0, Sodium 137, Potassium 3.8, Chloride 109 H, Carbon Dioxide 24.0, Anion Gap 4 L, BUN 18, Creatinine 0.61, Estim Creat Clear Calc 107.64, Est GFR (MDRD) Af Amer 152, Est GFR (MDRD) Non-Af 126, BUN/Creatinine Ratio 29.7 H, Glucose 107 H, Calcium 8.1 L, Phosphorus 3.4, Magnesium 1.7 Imaging Radiology Impression KUB X-Ray 11/08/23 06:00 IMPRESSION: Large volume of bowel gas suggests possible ileus. Electronically Signed: Allison Matthews MD at 6:50 EDT Reading Location ID and State: [address] [place] [address] , Service support , Assessment & Plan Assessment/Plan (1) SBO (small bowel obstruction): PLAN: Patient 28-year-old female with past medical history inclusive of diagnoses of chronic constipation and gastroparesis and past surgical history of cholecystectomy who presents for concern of small bowel obstruction versus ileus. Upon eliciting patient's history her condition is considered more consistent with a diagnosis of ileus. She shares that there are number of family members last week that had similar gastroenterologic symptoms and her complaints of nausea and back pain were preceded by some low-grade fevers. Additionally, she has had return of bowel function with incontinence and diarrhea. All of this is in keeping with a picture of infectious enterocolitis and paralytic ileus. I am still waiting to be able to see patients index CT pictures, but her KUB from this morning shows almost exclusive gaseous distention of the colon?but not in a pathologic send such as colonic pseudoobstruction. Further, her exam today is completely benign. Therefore, I have recommended we proceed with a small bowel follow-through after patient has the opportunity to ingest Gastrografin contrast. If her bowel transit time is normal with this contrast we will plan to advance her diet as tolerated. In the interim if patient is able to provide a stool sample would like to collect enteric pathogen PCR specimen. Will continue supportive care with IV fluid resuscitation. Rahat Hastings MD General Surgery Endocrine Surgery Pager: [facility] [address] [place] [address], [address] [place] [address] Office: [phone] (2) Ileus: PLAN: As above, patient's history and exam are more consistent with a diagnosis of paralytic ileus related to infectious etiology. Looking to obtain small bowel follow-through as above for exclusion of mechanical obstruction. Charges/Coding Visit Charges Inpatient E&M: 57961 Init Hosp L2
--- NOTE | 2023-11-08 07:46 | RAD_ITS ---
INDICATION: constipation -- Gastrografin; KUB immed, 1H, 3H EXAMINATION/TECHNIQUE: Small bowel series. 120 cc of Gastrografin was administered orally to the patient. No fluoroscopy was used. Images were obtained up to 3 hour. COMPARISON: FINDINGS: The small bowel loops are normal in caliber. The mucosal pattern is unremarkable. There is normal motility. There is no small bowel obstruction. Small bowel transit time is within normal limits approximately 1 hour. RAD/Small Bowel Series Only IMPRESSION: No evidence of small bowel obstruction. Electronically Signed: Navin Fragoso MD at 12:37 EDT ,
[2023-11-08 09:10] VITALS: BP 87/65; PULSE 68; RESP 16; TEMP 36.5; O2SAT 99
[2023-11-08 10:40] VITALS: BP 98/56; PULSE 72; RESP 16; TEMP 36.7; O2SAT 100
--- NOTE | 2023-11-08 14:30 | CASEMGMT ---
GARETH RINCON Assessment: Face to Face with pt for initial transition planning/care coordination assessment. GARETH RINCON introduced self and role at [facility], pt voices understanding and consents to assessment. Pt sitting up in bed in no distress with sitting at bedside. Pt is A&O x4 and answers all questions appropriately at this time. Care providers, pharmacy, and demographics verified/updated. Admitting Dx: Small bowel obstruction vs ileus PCP: [facility] Specialists: Friend, Gastrologist Preferred Pharmacy: [facility] Insurance: [employer] Prescription Benefit: yes LNOK: Gabriel - , Catherine - mom Living Arrangements: Pt lives with and baby at home. Pt states I with ADLs and IADLs. Pt states no concerns upon DC at this time. Transportation: Pt drives self and denies concerns with transportation. DME: Denies HHC/SNF: Denies Hx of. Pt states no concerns with going home at time of dc. Pt states no further concerns/needs. CM to follow. Advised pt to ask CM if any further question/concerns/needs arise, voices understanding. Pt Goal: Home Plan: Home no needs Jorg[facility] SERVIN CM
[2023-11-08 15:33] VITALS: BP 87/42; PULSE 58; RESP 16; TEMP 36.9; O2SAT 97
--- NOTE | 2023-11-08 16:03 | DCINST_ITS ---
Discharge Instructions Diet Discharge Diet: Light diet - advance as tolerated Activity Discharge Activity: May Drive Follow Up Care Please Follow Up With: Rahat Hastings MD When: Follow-up as needed Test Results: Test results from this visit will be discussed in further detail at your follow- up appointment, if applicable. Discharge Plan Admission Admit Date/Time: 11/07/23 23:58 Primary Reason for Your Visit: Ileus Attending Provider: Rahat Hastings Primary Care Provider: Sandrine Stock Discharge Orders/Prescriptions Prescriptions: Continued PNV no.[id number] 400 mcg-35 mg- 25 mg-5 mg tablet,chewable 1 tab PO 1XD buspirone 10 mg tablet 5 mg PO BID digestive enzymes Capsule 1 cap PO TIDCM Rx Instructions: administer with food; swallow whole; do not crush/chew/dissolve/break/cut metoclopramide HCl [Reglan] 5 mg tablet 5 mg PO QAC Qty: 90 1RF Rx Instructions: administer 30 minutes before meals Referrals / Follow Up: Sandrine Stock DO [Primary Care Provider] - Disposition Disposition (needs filled in before D/C Order can be placed): Home, Self Care
[2023-11-08] MEDS: Metoclopramide 5 MG TABLET PO (16:10)
[2023-11-08 17:41] VITALS: BP 119/48; PULSE 67; RESP 16; TEMP 36.8; O2SAT 96
[2023-11-09 14:09] LABS: Giardia Lamblia, Stool EIA Negative (Negative)
== END 2023-11-08 18:23 | disposition home or self-care (01) | DRG 389 ==
PROVIDERS: Physician Assistant; Admitting Provider Surgery; PCP Internal Medicine; Visit Provider Surgery
DX: K56.0 Paralytic ileus (principal); A09 Infectious gastroenteritis and colitis, unspecified; F41.1 Generalized anxiety disorder; Z90.49 Acquired absence of other specified parts of digestive tract
CPT/HCPCS: 36415; 74018; 74250; 80048; 82274; 83630; 83735; 84100; 85025; 87329; 87506; 93005; 94668; J7120; J2405

== ENCOUNTER → 2024-09-14 | Outpatient (CLI) | payer OTHER, SELFPAY ==
--- NOTE | 2024-09-14 13:19 | CT_ITS ---
PROCEDURE: ABDOMEN/PELVIS WITH CONTRAST (procedure code CTABDPELW), 09/14/2024 REASON FOR EXAM: BLOATING AND ABODMINAL PAIN WITH RECENT ILEUS TECHNIQUE: CT abdomen and pelvis was performed with IV contrast. Multiplanar reformats were generated. Oral contrast was also administered. IV CONTRAST: Isovue-300 VOLUME: 75ML ORAL CONTRAST: Type and dose information not provided. RADIATION DOSE SUMMARY: CTDlvol: 5.49 mGy DLP: 257.55 mGycm One or more dose reduction techniques were used (e.g., Automated exposure control, adjustment of the mA and/or kV according to patient size, use of iterative reconstruction technique). COMPARISON: 11/07/2023 and prior ; note that images only are available for review, the reports are not available at the time of the dictation. FINDINGS: Lung bases: Unremarkable. Liver: Unremarkable. Spleen: Unremarkable. Gallbladder: Cholecystectomy. Pancreas: Unremarkable. Adrenals: Unremarkable. Kidneys: Tiny hypodensities on the LEFT are too small to characterize, likely cysts. Bowel: Distended stomach as has been present on previous exams dating back to 03/07/2020 no other areas of bowel dilatation or convincing inflammation. Normal caliber appendix. Lymph nodes: Unremarkable. Vasculature: Unremarkable. Peritoneum: Trace pelvic free fluid. Bladder: Unremarkable. Reproductive Organs: Peripherally enhancing RIGHT adnexal 2.0 cm presumed corpus luteal cyst. Body Wall: Unremarkable. Bones: Similar RIGHT iliac likely bone island. CT/Abdomen/Pelvis WITH Contrast IMPRESSION: 1. Distended stomach, also present on prior exams dating back to 03/07/2020. C orrelate for clinical evidence of gastroparesis. Nuclear medicine gastric emptying study could be considered, as indicated. 2. RIGHT adnexal presumed corpus luteal cyst could be a potential source of beka f-limited abdominopelvic pain. 3. Trace pelvic free fluid may be physiologic in this demographic. 4. Additional description as above. Reading Location: [id number]
== END | disposition home or self-care (01) ==
LOC: CT 13:17
PROVIDERS: PCP Internal Medicine; Referring Provider Internal Medicine Gastroenterology; Visit Provider Internal Medicine Gastroenterology
DX: K59.00 Constipation, unspecified (principal); R14.0 Abdominal distension (gaseous); K21.9 Gastro-esophageal reflux disease without esophagitis
CPT/HCPCS: 74177; Q9967

== ENCOUNTER → 2024-09-19 | Outpatient (CLI) | payer OTHER, SELFPAY ==
--- NOTE | 2024-09-19 12:25 | NM_ITS ---
EXAM: Nuclear medicine gastric emptying study. CLINICAL HISTORY: History of gastroparesis; with bloating. COMPARISON: Prior gastric emptying nuclear medicine examination of 03/19/2021 TECHNIQUE: Nuclear medicine gastric emptying study. Dose: 1.2 mCi technetium 99 M sulfur colloid, orally mixed with oatmeal. FINDINGS: Markedly diminished gastric emptying is seen, with linear fit half time of 211 minutes. Gastric emptying at 29.5 minutes was measured at 5%, and at 59.5 minutes at 26%. NM/Gastric Emptying Study IMPRESSION: Delayed/diminished gastric emptying. Significant interval worsening is seen si nce the prior study of 2020. Reading Location: [id number]
== END | disposition home or self-care (01) ==
LOC: NM 12:18
PROVIDERS: PCP Internal Medicine; Referring Provider Internal Medicine Gastroenterology; Visit Provider Internal Medicine Gastroenterology
DX: K59.00 Constipation, unspecified (principal); K21.9 Gastro-esophageal reflux disease without esophagitis; R14.0 Abdominal distension (gaseous)
CPT/HCPCS: 78264; A9541